=== PATIENT | female | born 2000 | race Caucasian/White ===

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

== ENCOUNTER 2020-01-11 16:38 | Outpatient (REF) | payer OTHER, SELFPAY ==
[2020-01-13 14:28] LABS: Chlamydia Result Negative (Negative); GC Result Negative (Negative)
== END 2020-01-11 16:58 ==
LOC: LBN 16:38
PROVIDERS: Visit Provider Nurse Practitioner Family
DX: Z11.3 Encounter for screening for infections with a predominantly sexual mode of transmission (principal)
CPT/HCPCS: 87491; 87591

== ENCOUNTER 2020-04-05 15:55 | Outpatient (REF) | payer OTHER, SELFPAY ==
[2020-04-07 04:18] LABS: Patient Race White; SARS-CoV-2 RNA Undetected (Undetected); SARS-CoV-2 Specimen Source Nasopharynx
== END 2020-04-05 16:15 ==
LOC: NCHCN 15:55
PROVIDERS: Visit Provider Nurse Practitioner Family
DX: J34.89 Other specified disorders of nose and nasal sinuses (principal)
CPT/HCPCS: U0003

== ENCOUNTER 2021-12-21 10:50 | Outpatient (REF) | payer BC, SELFPAY ==
--- NOTE | 2021-12-21 09:05 | PAPFT_PTH ---
PATIENT: Leanne Washington LOC: [facility]#:[id number] AGE/SX: 21/F ROOM: RE12/21/[address]: Rosalee De La Garza : 2000 BED: DIS: 12/21/2021 SPEC #: [id number] RECD: 12/21/21 18:29 STATUS: VALERIE REQ #: [id number] NAI: 12/21/21 09:[address]: Rosalee De La Garza DEPT: [facility] Cytology RECD BY: Shanthi Rueda ENTERED: 12/21/21 18:30 SP TYPE: PAPFT OT DR: Unknown,Unknown Tissues: 1 - CX/ENDOCX FOR PAP SMEARS Procedures: PAP THIN PREP/UVM Screening Comments: [id number]
== END 2021-12-21 10:51 | disposition home or self-care (01) ==
LOC: NCHCN 10:50
PROVIDERS: Visit Provider Nurse Practitioner Family
DX: Z12.4 Encounter for screening for malignant neoplasm of cervix (principal)
CPT/HCPCS: 88142

== ENCOUNTER 2024-09-07 14:00 | Outpatient (CLI) | payer OTHER, SELFPAY ==
[2024-09-07 13:11] LABS: HCG Quant, Pregnancy 146 mIU/mL (1-3)
== END 2024-09-07 14:01 | disposition home or self-care (01) ==
LOC: LBO 14:01
PROVIDERS: Visit Provider Advanced Practice Midwife
DX: Z34.91 Encounter for supervision of normal pregnancy, unspecified, first trimester (principal); N92.6 Irregular menstruation, unspecified
CPT/HCPCS: 36415; 86850; 86900; 86901; 84702

== ENCOUNTER 2024-09-09 03:46 | Outpatient (CLI) | payer OTHER, SELFPAY ==
[2024-09-09 10:55] LABS: HCG Quant, Pregnancy 447 mIU/mL (1-3)
== END 2024-09-09 03:47 | disposition home or self-care (01) ==
LOC: LBO 03:46
PROVIDERS: Visit Provider Advanced Practice Midwife
DX: Z34.91 Encounter for supervision of normal pregnancy, unspecified, first trimester (principal); N92.6 Irregular menstruation, unspecified
CPT/HCPCS: 36415; 84702

== ENCOUNTER 2024-11-18 02:14 | Outpatient (CLI) | payer OTHER, SELFPAY ==
[2024-11-18 11:03] LABS: Panorama Kit Sent via Fed Ex
[2024-11-18 11:30] LABS: Abs Immature Grans 0.03 10^3/uL (0.0-0.06); Absolute Basophil Count 0.06 10^3/uL (0.0-0.2); Absolute Eosinophil Count 0.12 10^3/uL (0.0-0.7); Absolute Lymphocyte Count 1.07 10^3/uL (1.2-3.4); Absolute Monocyte Count 0.34 10^3/uL (0.1-0.8); Absolute Neutrophil Count 7.47 10^3/uL (1.2-6.7); Basophils % 0.7 %; Eosinophils % 1.3 %; HCT 40.8 % (36.0-46.0); HGB 13.9 g/dL (11.2-15.7); Immature Grans % 0.3 %; Lymphocytes % 11.8 %; MCH 29.1 pg (27.0-33.0); MCHC 34.1 % (32.0-36.0); MCV 86 fL (80-95); MPV 10.4 fL (8.0-11.0); Monocytes % 3.7 %; Neutrophils % 82.2 %; Platelet Count 301 10^3/uL (130-400); RBC 4.77 10^6/uL (3.93-5.22); RDW 13.4 % (11.7-14.6); WBC 9.09 10^3/uL (4.4-10.8)
[2024-11-18 18:59] LABS: Hepatitis B Surface Ag Negative (Negative)
[2024-11-18 19:30] LABS: HIV-1/2 Ag & Ab Screen Negative (Negative)
[2024-11-18 19:36] LABS: Hepatitis C Ab w Rflx HCV PCR Negative (Negative)
[2024-11-19 09:03] LABS: Rubella IgG Ab (UVM) Positive (See Note)
[2024-11-19 09:05] LABS: Varicella IgG Antibody Positive (See Note)
[2024-11-21 14:39] LABS: Syphilis IgG w/Reflex Nonreactive (Nonreactive)
[2024-11-26 01:28] LABS: Specimen WB Whole Blood
[2024-11-27 16:57] LABS: Result Summary NEGATIVE; Specimen WB Whole Blood
== END 2024-11-18 02:15 | disposition home or self-care (01) ==
LOC: LBO 02:14
PROVIDERS: Advanced Practice Midwife; Visit Provider Advanced Practice Midwife
DX: Z34.92 Encounter for supervision of normal pregnancy, unspecified, second trimester (principal); Z3A.14 14 weeks gestation of pregnancy
CPT/HCPCS: 36415; 81220; 81222; 81329; 86787; 86803; 86850; 86900; 86901; 87340; 87389; 85025; 86762; 86780

== ENCOUNTER 2024-11-18 10:35 | Outpatient (REF) | payer OTHER, SELFPAY ==
--- NOTE | 2024-11-18 10:15 | PAPFT_PTH ---
PATIENT: Leanne Washington LOC: [place] U#:[id number] AGE/SX: 24/F ROOM: RE11/18/[address]: Daphne Kinsey : 2000 BED: DIS: 11/18/2024 SPEC #: [id number] RECD: 11/18/24 13:06 STATUS: VALERIE REHolly #: [id number] NAI: 11/18/24 10:[address]: Daphne Kinsey DEPT: [facility] Cytology RECD BY: Shanthi Ruead ENTERED: 11/18/24 13:06 SP TYPE: PAPFT OTHR DR: Unknown,Unknown Tissues: 1 - CX/ENDOCX FOR PAP SMEARS Procedures: PAP THIN PREP/UVM Screening Comments: [id number] (CHLAMYDIA/GC)
[2024-11-18 12:57] LABS: *AMPHETAMINES SCREEN URINE Negative (Negative); *BARBITURATES SCREEN URINE Negative (Negative); *BENZODIAZEPINES SCREEN URINE Negative (Negative); Cannabinoids THC Negative (Negative); Cocaine Screen,Urine Negative (Negative); METHADONE URINE SCREEN Negative (Negative); OPIATES URINE SCREEN Negative (Negative)
[2024-11-18 13:11] LABS: Tricyclic Antidepressants Negative (Negative)
[2024-11-19 11:45] LABS: Fentanyl Scr w/Rfx Confirm Negative ng/mL (<1)
[2024-11-19 12:03] LABS: Chlamydia Result Negative (Negative); GC Result Negative (Negative)
[2024-11-24 10:45] LABS: Buprenorphine Negative ng/mL (Cutoff: 5.0); Norbuprenorphine Negative ng/mL (Cutoff: 2.5)
== END 2024-11-18 10:36 | disposition home or self-care (01) ==
LOC: LBN 10:35
PROVIDERS: Visit Provider Advanced Practice Midwife
DX: Z34.92 Encounter for supervision of normal pregnancy, unspecified, second trimester (principal); Z3A.14 14 weeks gestation of pregnancy; Z12.4 Encounter for screening for malignant neoplasm of cervix
CPT/HCPCS: 80307; 80348; 87491; 87591; 88142; 87086

== ENCOUNTER 2024-12-16 10:40 | Outpatient (REF) | payer OTHER, SELFPAY ==
[2024-12-16 13:45] LABS: PROTEIN < 6.0 mg/dL
[2024-12-16 13:46] LABS: COMMENT (LAB VIEW ONLY) < 13.00 mg/dL
== END 2024-12-16 10:41 | disposition home or self-care (01) ==
LOC: LBN 10:40
PROVIDERS: Visit Provider Advanced Practice Midwife
DX: Z34.91 Encounter for supervision of normal pregnancy, unspecified, first trimester (principal)
CPT/HCPCS: 82565; 84156

== ENCOUNTER 2024-12-16 11:07 | Outpatient (CLI) | payer OTHER, SELFPAY ==
[2024-12-16 12:05] LABS: ALT 25 U/L (14-59); AST 18 U/L (15-37); Albumin 3.5 g/dL (3.4-5.0); Alkaline Phosphatase 67 U/L (46-116); Anion Gap 11.3 mmol/L (3-11); BUN 7 mg/dL (7-18); Bilirubin, Total 0.3 mg/dL (0.2-1.0); CO2 24.7 mmol/L (21.0-32.0); CREATININE 0.6 mg/dL (0.55-1.02); Calcium 9.2 mg/dL (8.5-10.1); Chloride 102 mmol/L (98-107); Estimated GFR 128.46 (mL/min/1.73m2); Glucose 85 mg/dL (74-106); Sodium 138 mmol/L (136-145); Total Protein 7.5 g/dL (6.4-8.2)
== END 2024-12-16 11:08 | disposition home or self-care (01) ==
LOC: LBO 11:07
PROVIDERS: Visit Provider Advanced Practice Midwife
DX: Z34.91 Encounter for supervision of normal pregnancy, unspecified, first trimester (principal)
CPT/HCPCS: 36415; 80053

== ENCOUNTER 2025-03-02 08:15 | Outpatient (CLI) | payer OTHER, SELFPAY ==
[2025-03-02 09:07] LABS: HCT 36.6 % (36.0-46.0); HGB 12.2 g/dL (11.2-15.7); MCH 29.6 pg (27.0-33.0); MCHC 33.3 % (32.0-36.0); MCV 89 fL (80-95); MPV 9.4 fL (8.0-11.0); Platelet Count 255 10^3/uL (130-400); RBC 4.12 10^6/uL (3.93-5.22); RDW 13.7 % (11.7-14.6); RDW-SD 44.6 fL; WBC 12.06 10^3/uL (4.4-10.8)
[2025-03-02 09:15] LABS: Glucose,1 Hr (Glucola) 112 mg/dL (80-140)
== END 2025-03-02 08:16 | disposition home or self-care (01) ==
LOC: LBO 08:15
PROVIDERS: Visit Provider Advanced Practice Midwife
DX: Z34.93 Encounter for supervision of normal pregnancy, unspecified, third trimester (principal); O26.893 Other specified pregnancy related conditions, third trimester; Z67.91 Unspecified blood type, Rh negative
CPT/HCPCS: 36415; 82950; 85027; 86850; 90384

== ENCOUNTER 2025-03-02 10:26 | Outpatient (CLI) | payer OTHER, SELFPAY ==
--- NOTE | 2025-03-02 06:15 | DI.US_ITS ---
Exam(s) US OB TISHA WEIGHT EXAM: US OB TISHA WEIGHT CLINICAL HISTORY: placenta previa,HYPERTENSION,HIGH RISK,MEDICATION EXPOSURE. TECHNIQUE: Transabdominal obstetrical ultrasound was performed. COMPARISON: US POCUS EXAM from 10/12/2024 FINDINGS: There is a single viable intrauterine gestation with cardiac activity identified-146 bpm The fetus is presently in cephalic position . Amniotic fluid: There is a normal amount of amniotic fluid with an TISHA of 16.7cm. Placental location: The placenta is posterior grade 1,and the inferior tip of the placenta is at the marginal aspect of the internal cervical os implying marginal placenta previa. Cervix: Cervical length is 4.7 cm and closed. There is also no fluid in the endocervical canal. Dating parameters place this at approximately 29 gestational age, implying BERNIE of 05/18/2025. BPD measures 27 weeks and 3 days HC measures 30 weeks and 4 days AC measures 29 weeks and 2 days FL measures 28 weeks and 6 days Estimated weight is 1339 gm-2 pounds 15 ounces Fetus is at the 58th percentile on the Hadlock scale. IMPRESSION:: Viable intrauterine gestation, as described above. Marginal placenta previa. Cervical length is 4.7 cm. DATA REPOSITORY:
== END 2025-03-02 10:46 ==
PROVIDERS: PCP Nurse Practitioner Family; Visit Provider Obstetrics & Gynecology
DX: O44.03 Complete placenta previa NOS or without hemorrhage, third trimester (principal); I10 Essential (primary) hypertension; O09.893 Supervision of other high risk pregnancies, third trimester; Z3A.29 29 weeks gestation of pregnancy
CPT/HCPCS: 76816

== ENCOUNTER 2025-03-31 14:04 | Outpatient (CLI) | payer OTHER, SELFPAY ==
[2025-03-31] VITALS (7 sets, daily range): BP systolic 127–145; BP diastolic 83–99; PULSE 76–86; TEMP 37
[2025-03-31 15:27] LABS: HCT 36.2 % (36.0-46.0); HGB 12.2 g/dL (11.2-15.7); MCH 29.7 pg (27.0-33.0); MCHC 33.7 % (32.0-36.0); MCV 88 fL (80-95); MPV 10.2 fL (8.0-11.0); Platelet Count 213 10^3/uL (130-400); RBC 4.11 10^6/uL (3.93-5.22); RDW 13.7 % (11.7-14.6); RDW-SD 43.1 fL; WBC 10.33 10^3/uL (4.4-10.8)
[2025-03-31 15:33] LABS: Cannabinoids THC Negative (Negative); METHADONE URINE SCREEN Negative (Negative)
[2025-03-31 15:35] LABS: PROTEIN < 6.0 mg/dL
[2025-03-31 15:55] LABS: ALT 19 U/L (14-59); AST 16 U/L (15-37); Albumin 2.7 g/dL (3.4-5.0); Alkaline Phosphatase 108 U/L (46-116); Anion Gap 11.9 mmol/L (3-11); BUN 4 mg/dL (7-18); Bilirubin, Total 0.2 mg/dL (0.2-1.0); CO2 23.1 mmol/L (21.0-32.0); Calcium 8.9 mg/dL (8.5-10.1); Chloride 106 mmol/L (98-107); Glucose 77 mg/dL (74-106); Potassium 3.7 mmol/L (3.5-5.1); Sodium 141 mmol/L (136-145); Total Protein 6.4 g/dL (6.4-8.2)
[2025-03-31] MEDS: Labetalol 100 MG TAB 200 MG PO ×2 (16:58→17:57)
--- NOTE | 2025-03-31 18:16 | W.OBNST ---
Date of service: 03/31/25 Time of Service: 18:16 NST Evaluation Reason for NST Reasons for Nonstress Test: OTHER, SEE COMMENT Reason for NST Other: Elevated BP in office Gestational Age Gestational Age in Weeks and Days: 32 Weeks and 5Days Test and Monitor Explained Test/Monitor Explained: Test Explained, Monitor Explained and Patient Verbalized Understanding Vital Signs Blood Pressure: 145/99 Pulse: 80 Temperature: 98.6 F Urine Results Urine Protein: Negative Urine Ketones: Negative Urine Glucose: Negative Urine Blood: Negative NST Information Date on Monitor: 03/31/25 Time on Monitor: 14:15 Date off Monitor: 03/31/25 Time off Monitor: 18:18 Total Time on Monitor: 243 NST Interventions: PO Hydration Contraction Frequency: Occasional NST Evaluation Patient States Movement: Present FHR Baseline: 135 Variability: Moderate 6-25 bpm Accelerations: 15x15 Decelerations: None NST Results: Reactive Note Ultrasound Done: N/A. NST Note Note: Sustained mild range pressures Labs all nml Consultation with Dr. Contreras, Dx is chronic HTN Will order labetalol 200 mg PO BID F/up in 2 days in office for MD appt and NST/BP check NST Reviewed and Verified by: Inez Aguero
--- NOTE | 2025-04-01 07:15 | W.OBNST ---
Date of service: 03/31/25 Time of Service: 18:00 NST Evaluation Reason for NST Reasons for Nonstress Test: OTHER, SEE COMMENT Reason for NST Other: Elevated BP in office Gestational Age Gestational Age in Weeks and Days: 32 Weeks and 5Days Test and Monitor Explained Test/Monitor Explained: Test Explained, Monitor Explained and Patient Verbalized Understanding Vital Signs Blood Pressure: 145/99 Pulse: 80 Temperature: 98.6 F Urine Results Urine Protein: Negative Urine Ketones: Negative Urine Glucose: Negative Urine Blood: Negative NST Information Date on Monitor: 03/31/25 Time on Monitor: 14:15 Date off Monitor: 03/31/25 Time off Monitor: 18:18 Total Time on Monitor: 243 NST Interventions: PO Hydration Contraction Frequency: Occasional NST Evaluation Patient States Movement: Present FHR Baseline: 135 Variability: Moderate 6-25 bpm Accelerations: 15x15 Decelerations: None NST Results: Reactive Note Ultrasound Done: N/A. NST Note Note: start labetalol 300 mg BID RTO 2 days NST Reviewed and Verified by: Inez Aguero
[2025-04-01 07:16] VITALS: BP 145/99; PULSE 80; TEMP 37
[2025-04-02 11:54] LABS: Fentanyl Scr w/Rfx Confirm Negative ng/mL (<1)
== END 2025-03-31 18:30 ==
LOC: BCD 14:09 → OBS 14:35
PROVIDERS: PCP Nurse Practitioner Family; Visit Provider Advanced Practice Midwife
DX: O13.3 Gestational [pregnancy-induced] hypertension without significant proteinuria, third trimester (principal); Z3A.32 32 weeks gestation of pregnancy
CPT/HCPCS: 80053; 80307; 80348; 85027; 59025; 82565; 84156

== ENCOUNTER 2025-04-02 07:40 | Outpatient (CLI) | payer OTHER, SELFPAY ==
[2025-04-02 08:55] VITALS: BP 123/86; PULSE 105; TEMP 36.7
--- NOTE | 2025-04-02 10:12 | W.OBNST ---
Date of service: 04/02/25 Time of Service: 10:12 NST Evaluation Reason for NST Reasons for Nonstress Test: CHRONIC HYPERTENSION Reason for NST Other: partial previa Gestational Age Gestational Age in Weeks and Days: 33 Weeks and 0Days Test and Monitor Explained Test/Monitor Explained: Test Explained and Monitor Explained Vital Signs Blood Pressure: 123/86 Pulse: 105 Temperature: 98.1 F NST Information Date on Monitor: 04/02/25 Time on Monitor: 08:25 Date off Monitor: 04/02/25 Time off Monitor: 08:55 Total Time on Monitor: 30 NST Interventions: None NST Evaluation Patient States Movement: Present FHR Baseline: 145 Variability: Moderate 6-25 bpm Accelerations: 15x15 Decelerations: None NST Results: Reactive Note Ultrasound Done: N/A. NST Note Note: Category 1, reactive NST NST Reviewed and Verified by: Jessica Contreras
[2025-04-02 10:13] VITALS: BP 123/86; PULSE 105; TEMP 36.7
== END 2025-04-02 09:25 ==
LOC: BCD 07:42 → OBS 08:49
PROVIDERS: PCP Nurse Practitioner Family; Visit Provider Advanced Practice Midwife
DX: Z3A.30 30 weeks gestation of pregnancy (principal); O12.03 Gestational edema, third trimester; O13.3 Gestational [pregnancy-induced] hypertension without significant proteinuria, third trimester
CPT/HCPCS: 59025

== ENCOUNTER 2025-04-06 08:00 | Outpatient (CLI) | payer OTHER, SELFPAY ==
[2025-04-06 08:11] VITALS: BP 115/71; PULSE 85; TEMP 36.4
--- NOTE | 2025-04-06 11:04 | W.OBNST ---
Date of service: 04/06/25 Time of Service: 11:04 NST Evaluation Reason for NST Reasons for Nonstress Test: GESTATIONAL HYPERTENSION Gestational Age Gestational Age in Weeks and Days: 33 Weeks and 4Days Test and Monitor Explained Test/Monitor Explained: Test Explained, Monitor Explained and Patient Verbalized Understanding Urine Results Urine Protein: Positive Urine Ketones: Negative Urine Glucose: Negative Urine Blood: Negative NST Information Date on Monitor: 04/06/25 Time on Monitor: 08:10 Date off Monitor: 04/06/25 Time off Monitor: 08:49 Total Time on Monitor: 39 NST Interventions: None NST Evaluation Patient States Movement: Present FHR Baseline: 130 Variability: Moderate 6-25 bpm Accelerations: 15x15 Decelerations: None NST Results: Reactive Note Ultrasound Done: N/A. NST Note Note: Category 1, reactive NST. NST Reviewed and Verified by: Jessica Contreras
--- NOTE | 2025-04-06 11:19 | W.OBNST ---
Date of service: 04/06/25 Time of Service: 17:00 NST Evaluation Reason for NST Reasons for Nonstress Test: GESTATIONAL HYPERTENSION Gestational Age Gestational Age in Weeks and Days: 35 Weeks and 4Days Test and Monitor Explained Test/Monitor Explained: Test Explained, Monitor Explained and Patient Verbalized Understanding Urine Results Urine Protein: Positive Urine Ketones: Negative Urine Glucose: Negative Urine Blood: Negative NST Information Date on Monitor: 04/06/25 Time on Monitor: 08:10 Date off Monitor: 04/06/25 Time off Monitor: 08:49 Total Time on Monitor: 39 NST Interventions: None NST Evaluation Patient States Movement: Present FHR Baseline: 130 Variability: Moderate 6-25 bpm Accelerations: 15x15 Decelerations: None NST Results: Reactive Note Ultrasound Done: N/A. NST Note NST Reviewed and Verified by: Adrienne Trammell
--- NOTE | 2025-04-21 11:18 | W.OBNST ---
Date of service: 04/21/25 Time of Service: 17:00 NST Evaluation Reason for NST Reasons for Nonstress Test: GESTATIONAL HYPERTENSION Gestational Age Gestational Age in Weeks and Days: 35 Weeks and 4Days Test and Monitor Explained Test/Monitor Explained: Test Explained, Monitor Explained and Patient Verbalized Understanding Urine Results Urine Protein: Positive Urine Ketones: Negative Urine Glucose: Negative Urine Blood: Negative NST Information Time on Monitor: 08:10 Date off Monitor: 04/06/25 Time off Monitor: 08:49 NST Interventions: None NST Evaluation Patient States Movement: Present FHR Baseline: 130 Variability: Moderate 6-25 bpm Accelerations: 15x15 Decelerations: None NST Results: Reactive Note Ultrasound Done: N/A. NST Note NST Reviewed and Verified by: Adrienne Trammell
== END 2025-04-06 08:45 ==
LOC: BCD 08:02 → OBS 08:05
PROVIDERS: PCP Nurse Practitioner Family; Visit Provider Obstetrics & Gynecology
DX: O13.3 Gestational [pregnancy-induced] hypertension without significant proteinuria, third trimester (principal); Z3A.34 34 weeks gestation of pregnancy
CPT/HCPCS: 59025

== ENCOUNTER 2025-04-09 07:31 | Outpatient (CLI) | payer OTHER, SELFPAY ==
[2025-04-09 08:03] VITALS: BP 120/82; PULSE 84; TEMP 36.8
[2025-04-09 08:20] VITALS: BP 120/82; PULSE 84
[2025-04-09 08:35] VITALS: BP 120/80
--- NOTE | 2025-04-21 11:58 | W.OBNST ---
Date of service: 04/09/25 Time of Service: 11:58 NST Evaluation Reason for NST Reasons for Nonstress Test: CHRONIC HYPERTENSION Gestational Age Gestational Age in Weeks and Days: 35 Weeks and 4Days Test and Monitor Explained Test/Monitor Explained: Test Explained Vital Signs Blood Pressure: 120/80 Pulse: 84 Temperature: 98.2 F Urine Results Urine Protein: Positive Urine Ketones: Positive Urine Glucose: Negative Urine Blood: Negative NST Information Date on Monitor: 04/09/25 Time on Monitor: 08:00 NST Interventions: PO Hydration NST Evaluation Patient States Movement: Present FHR Baseline: 125 Variability: Moderate 6-25 bpm Accelerations: 15x15 Decelerations: None NST Results: Reactive Note Ultrasound Done: N/A. NST Note Note: Category 1, reactive NST NST Reviewed and Verified by: Jessica Contreras
[2025-04-21 11:59] VITALS: BP 120/80; PULSE 84; TEMP 36.8
== END 2025-04-09 09:24 | disposition home health service (06) ==
LOC: BCD 07:32 → OBS 07:56
PROVIDERS: PCP Nurse Practitioner Family; Visit Provider Obstetrics & Gynecology
DX: O13.3 Gestational [pregnancy-induced] hypertension without significant proteinuria, third trimester (principal); Z3A.35 35 weeks gestation of pregnancy
CPT/HCPCS: 59025

== ENCOUNTER 2025-04-15 07:49 | Outpatient (CLI) | payer OTHER, SELFPAY ==
[2025-04-15 09:57] VITALS: BP 133/89; PULSE 78; TEMP 36.5
[2025-04-15 10:05] VITALS: BP 133/89; PULSE 78
[2025-04-15 12:04] VITALS: BP 133/89; PULSE 78; TEMP 36.5
--- NOTE | 2025-04-15 12:04 | W.OBNST ---
Date of service: 04/15/25 Time of Service: 12:04 NST Evaluation Reason for NST Reasons for Nonstress Test: CHRONIC HYPERTENSION Gestational Age Gestational Age in Weeks and Days: 34 Weeks and 6Days Test and Monitor Explained Test/Monitor Explained: Test Explained and Monitor Explained Vital Signs Blood Pressure: 133/89 Pulse: 78 Temperature: 97.7 F Weight: 155 lb Urine Results Urine Protein: Negative Urine Ketones: Negative Urine Glucose: Negative Urine Blood: Negative NST Information Date on Monitor: 04/15/25 Time on Monitor: 10:00 Date off Monitor: 04/15/25 Time off Monitor: 10:57 Total Time on Monitor: 57 NST Interventions: PO Hydration NST Evaluation Patient States Movement: Present FHR Baseline: 145 Variability: Moderate 6-25 bpm Accelerations: 15x15 Decelerations: None NST Results: Reactive Note Ultrasound Done: N/A. NST Note Note: Category 1, reactive NST. Occasional irregular contraction. Discussed timing for delivery and continued follow-up. Blood pressure remained stable NST Reviewed and Verified by: Jessica Contreras
== END 2025-04-15 11:00 ==
LOC: BCD 07:50 → OBS 09:55
PROVIDERS: PCP Nurse Practitioner Family; Visit Provider Obstetrics & Gynecology
DX: O13.3 Gestational [pregnancy-induced] hypertension without significant proteinuria, third trimester (principal); Z3A.34 34 weeks gestation of pregnancy
CPT/HCPCS: 59025

== ENCOUNTER 2025-04-20 07:21 | Outpatient (CLI) | payer OTHER, SELFPAY ==
[2025-04-20 08:40] VITALS: BP 126/84; PULSE 94; TEMP 37.2
--- NOTE | 2025-04-20 09:43 | W.OBNST ---
Date of service: 04/20/25 Time of Service: 09:43 NST Evaluation Reason for NST Reasons for Nonstress Test: CHRONIC HYPERTENSION Gestational Age Gestational Age in Weeks and Days: 35 Weeks and 4Days Test and Monitor Explained Test/Monitor Explained: Test Explained, Monitor Explained and Patient Verbalized Understanding Urine Results Urine Protein: Positive Urine Ketones: Positive Urine Glucose: Negative Urine Blood: Negative NST Information Date on Monitor: 04/20/25 Time on Monitor: 08:35 Date off Monitor: 04/20/25 Time off Monitor: 09:11 Total Time on Monitor: 36 NST Interventions: None NST Evaluation Patient States Movement: Present FHR Baseline: 135 Variability: Moderate 6-25 bpm Accelerations: 15x15 Decelerations: None NST Results: Reactive Note Ultrasound Done: N/A. NST Note Note: Patient seen with her partner. Category 1, reactive strip. Occasional irregular uterine activity, patient not appreciating this. She does have a repeat ultrasound scheduled at [facility] on 04/30 for reevaluation of placental location. Blood pressure remained stable. Refill for labetalol sent to the pharmacy. All questions answered. NST Reviewed and Verified by: Jessica Contreras
== END 2025-04-20 09:15 ==
LOC: BCD 07:22 → OBS 08:30
PROVIDERS: PCP Nurse Practitioner Family; Visit Provider Obstetrics & Gynecology
DX: O13.3 Gestational [pregnancy-induced] hypertension without significant proteinuria, third trimester (principal); Z3A.35 35 weeks gestation of pregnancy
CPT/HCPCS: 59025

== ENCOUNTER 2025-04-22 07:43 | Outpatient (CLI) | payer OTHER, SELFPAY ==
[2025-04-22 08:33] VITALS: BP 135/94; PULSE 73
[2025-04-22 08:37] VITALS: BP 127/86; PULSE 80
[2025-04-22 09:15] LABS: HCT 36.4 % (36.0-46.0); HGB 12.1 g/dL (11.2-15.7); MCH 29.6 pg (27.0-33.0); MCHC 33.2 % (32.0-36.0); MCV 89 fL (80-95); MPV 11.1 fL (8.0-11.0); Platelet Count 176 10^3/uL (130-400); RBC 4.09 10^6/uL (3.93-5.22); RDW 14.0 % (11.7-14.6); RDW-SD 44.8 fL; WBC 10.17 10^3/uL (4.4-10.8)
[2025-04-22 09:31] LABS: ALT 21 U/L (14-59); AST 16 U/L (15-37); Albumin 2.6 g/dL (3.4-5.0); Alkaline Phosphatase 141 U/L (46-116); Anion Gap 7.4 mmol/L (3-11); BUN 6 mg/dL (7-18); Bilirubin, Total 0.2 mg/dL (0.2-1.0); CO2 24.6 mmol/L (21.0-32.0); Calcium 8.9 mg/dL (8.5-10.1); Chloride 105 mmol/L (98-107); Glucose 85 mg/dL (74-106); Potassium 4.2 mmol/L (3.5-5.1); Sodium 137 mmol/L (136-145); Total Protein 6.2 g/dL (6.4-8.2)
[2025-04-22 09:38] VITALS: BP 128/86; PULSE 84
[2025-04-22 17:31] VITALS: BP 128/86; PULSE 84
--- NOTE | 2025-04-22 17:31 | W.OBNST ---
Date of service: 04/22/25 Time of Service: 17:31 NST Evaluation Reason for NST Reasons for Nonstress Test: CHRONIC HYPERTENSION Gestational Age Gestational Age in Weeks and Days: 35 Weeks and 6Days Test and Monitor Explained Test/Monitor Explained: Test Explained Vital Signs Blood Pressure: 128/86 Pulse: 84 Urine Results Urine Protein: Positive Urine Ketones: Negative Urine Glucose: Negative Urine Blood: Negative NST Information Date on Monitor: 04/22/25 Time on Monitor: 08:25 Date off Monitor: 04/22/25 Time off Monitor: 10:08 Total Time on Monitor: 103 NST Interventions: PO Hydration NST Evaluation Patient States Movement: Present FHR Baseline: 140 Variability: Moderate 6-25 bpm Accelerations: 15x15 Decelerations: None NST Results: Reactive Note Ultrasound Done: N/A. NST Note NST Reviewed and Verified by: Adrienne Trammell
== END 2025-04-22 10:30 ==
LOC: BCD 07:44 → OBS 08:28
PROVIDERS: PCP Nurse Practitioner Family; Visit Provider Obstetrics & Gynecology
DX: O13.3 Gestational [pregnancy-induced] hypertension without significant proteinuria, third trimester (principal); Z3A.35 35 weeks gestation of pregnancy
CPT/HCPCS: 36415; 80053; 85027; 59025; 82565; 84156

== ENCOUNTER 2025-04-26 07:38 | Outpatient (CLI) | payer OTHER, SELFPAY ==
[2025-04-26 11:57] VITALS: BP 143/95; PULSE 77; TEMP 36.7
[2025-04-26 12:04] VITALS: BP 143/95; PULSE 77; RESP 16; TEMP 36.7
[2025-04-26 12:19] VITALS: BP 148/96; PULSE 73
--- NOTE | 2025-04-26 16:30 | W.OBNST ---
Date of service: 04/26/25 Time of Service: 12:30 NST Evaluation Reason for NST Reasons for Nonstress Test: CHRONIC HYPERTENSION Gestational Age Gestational Age in Weeks and Days: 36 Weeks and 3Days Test and Monitor Explained Test/Monitor Explained: Patient Verbalized Understanding Vital Signs Blood Pressure: 143/95 Pulse: 77 Temperature: 98.1 F Weight: 160 lb Urine Results Urine Protein: Negative Urine Ketones: Negative Urine Glucose: Negative Urine Blood: Negative NST Information Date on Monitor: 04/26/25 Time on Monitor: 11:55 Date off Monitor: 04/26/25 Time off Monitor: 12:37 Total Time on Monitor: 42 NST Interventions: PO Hydration NST Evaluation Patient States Movement: Present FHR Baseline: 135 Variability: Moderate 6-25 bpm Accelerations: 15x15 Decelerations: None NST Results: Reactive Note Ultrasound Done: N/A. NST Note Note: see record NST Reviewed and Verified by: Liss Roman
[2025-04-26 16:32] VITALS: BP 143/95; PULSE 77; TEMP 36.7
== END 2025-04-26 12:40 ==
LOC: BCD 07:38 → OBS 11:53
PROVIDERS: PCP Nurse Practitioner Family; Visit Provider Obstetrics & Gynecology
DX: O13.3 Gestational [pregnancy-induced] hypertension without significant proteinuria, third trimester (principal); Z3A.36 36 weeks gestation of pregnancy
CPT/HCPCS: 59025

== ENCOUNTER 2025-04-29 07:06 | Outpatient (CLI) | payer OTHER, SELFPAY ==
[2025-04-29 08:19] VITALS: BP 130/87; PULSE 89; TEMP 36.7
[2025-04-29 08:32] VITALS: BP 130/87; PULSE 89
--- NOTE | 2025-04-29 14:38 | W.OBNST ---
Date of service: 04/29/25 Time of Service: 08:30 NST Evaluation Reason for NST Reasons for Nonstress Test: CHRONIC HYPERTENSION Gestational Age Gestational Age in Weeks and Days: 36 Weeks and 6Days Test and Monitor Explained Test/Monitor Explained: Test Explained and Monitor Explained Vital Signs Blood Pressure: 130/87 Pulse: 89 Temperature: 98.1 F Weight: 160 lb Urine Results Urine Protein: Positive Urine Ketones: Negative Urine Glucose: Negative Urine Blood: Negative NST Information Date on Monitor: 04/29/25 Time on Monitor: 08:25 Date off Monitor: 04/29/25 Time off Monitor: 09:10 Total Time on Monitor: 45 NST Interventions: PO Hydration NST Evaluation Patient States Movement: Present FHR Baseline: 140 Variability: Moderate 6-25 bpm Note Ultrasound Done: N/A. NST Note NST Reviewed and Verified by: Liss Roman
[2025-04-29 14:44] VITALS: BP 130/87; PULSE 89; TEMP 36.7
== END 2025-04-29 09:14 ==
LOC: BCD 07:09 → OBS 08:18
PROVIDERS: PCP Nurse Practitioner Family; Visit Provider Obstetrics & Gynecology
DX: O13.3 Gestational [pregnancy-induced] hypertension without significant proteinuria, third trimester (principal); Z3A.36 36 weeks gestation of pregnancy
CPT/HCPCS: 59025

== ENCOUNTER 2025-04-30 17:22 | Inpatient (IN) | payer OTHER, SELFPAY ==
[2025-04-30] VITALS (44 sets, daily range): BP systolic 143–155; BP diastolic 98–108; PULSE 0–113; RESP 17–18; TEMP 36.5–37.3; O2SAT 98
[2025-04-30 17:54] LABS: Abs Immature Grans 0.05 10^3/uL (0.0-0.06); HCT 37.2 % (36.0-46.0); HGB 12.5 g/dL (11.2-15.7); Immature Grans % 0.5 %; MCH 29.8 pg (27.0-33.0); MCHC 33.6 % (32.0-36.0); MCV 89 fL (80-95); MPV 11.1 fL (8.0-11.0); Platelet Count 203 10^3/uL (130-400); RBC 4.20 10^6/uL (3.93-5.22); RDW 13.8 % (11.7-14.6); RDW-SD 44.3 fL; WBC 9.51 10^3/uL (4.4-10.8)
[2025-04-30 18:05] LABS: Glucose Negative (Negative)
[2025-04-30 18:12] LABS: C & S Indicated? No; RBC 0-2 HPF (0-2)
[2025-04-30 18:15] LABS: ALT 21 U/L (14-59); AST 19 U/L (15-37); Albumin 2.9 g/dL (3.4-5.0); Alkaline Phosphatase 163 U/L (46-116); Anion Gap 11.0 mmol/L (3-11); BUN 8 mg/dL (7-18); Bilirubin, Total 0.3 mg/dL (0.2-1.0); CO2 23.0 mmol/L (21.0-32.0); Calcium 9.1 mg/dL (8.5-10.1); Chloride 104 mmol/L (98-107); Glucose 84 mg/dL (74-106); Potassium 4.1 mmol/L (3.5-5.1); Sodium 138 mmol/L (136-145); Total Protein 6.8 g/dL (6.4-8.2)
--- NOTE | 2025-04-30 18:22 | W.PM.OBHPL1 ---
Date of service: 04/30/25 Time of Service: 18:22 Assessment and Plan Assessment and plan (1) : Status: Acute Assessment and plan: 25-year-old at 37 0/7 dated by 6wk US (BERNIE 05/21/2025) - Rh neg / Rub I / VZV I / GBS unknown - complicated by Rh neg status, GBS unknown status, cHTN w/superimposed pre-E w/o SF, anxiety / depression initially complicated by low lying placenta which has since resolved - Undergoing IOL for preE w/o SF - Induction with 25 mcg cytotec PV q4 - GBS prophylaxis with PCN; to be initiated after second dose of Cyotec and/or when patient begins to have plalpable, regular contractions - - - - - - - - - - - - - - - - - 04/30/2025 (Jp): I had an extensive discussion with the patient and her family at the bedside. We discussed her vaginal exam and potential options for induction. After thorough discussion patient is opted for vaginal Cytotec every 4. All questions answered to the patient and family satisfaction. GBS swab collected today mostly for postdelivery information. Will cover for GBS in an abundance of caution. Rhogam to be offered . Will continue home dosing of labetalol 300 mg twice daily. Will continue citalopram. - - - - - - - - - - - - - - - - - (2) Rh negative status during : Status: Acute (3) Depression with anxiety: Status: Acute (4) Chronic hypertension during : Status: Acute (5) Pre-eclampsia affecting childbirth: Status: Acute OB-HPI Labor/Delivery History of Present Illness Reason for Visit: preeclampsia without severe features Chief Complaint: Scheduled Induction of Labor Indication for Induction: Chronic Hypertension and PreEclampsia. BERNIE Calculator Estimated Delivery Date Method Current WG Current Estimate 05/21/25 Ultrasound #1 37w 0d Other Estimates 05/16/25 LMP (Uncertain) 37w 5d 05/22/25 Ultrasound #2 36w 6d Comments: This is a 25-year-old -0-1-0 at 37 weeks and 0 days is dated by 6-week ultrasound (BERNIE 05/21/2025) who presents for induction of labor for superimposed preeclampsia preeclampsia without severe features. Patient was seen at the [facility]'s office this morning in [facility] and an ultrasound revealed that her placenta was out of the way of the cervix. However, she was noted to have elevated blood pressures (systolics in the 140s) and a protein creatinine level reported to be at 0.5. The MFM attending to her called our services to inform us of these findings and suggested that the patient be delivered for preeclampsia without severe features. Patient reports good movement. She denies any vaginal bleeding or contractions. She denies any signs or symptoms of preeclampsia at this time. History of Present Expected Delivery Route/Plan - CNM FOB/ - Robert Washington (first child) BG Specific Issues/Plan 1. Rh neg: Rh screen with cfDNA: low risk female, Rh+, CF/SMA negative; 28 wk RhoGam given 03/02/25 2. Anxiety and Depression: Takes Paroxetine 20 mg, understands risks in . Has therapist, Leatha Loredo PRN. 3. Exposure to Paroxetine in 1st trimester. Level 2 US & MFM consult sched'ed 12/28/24 3a. see MFM notes in EMR: increased risk of PPH from Paxil exposure so plan for IV access in labor, posterior previa noted, 3b. per MFM if placental edge <1cm from os c/s delivery @ 37 wks is recommended (see consult note) 3c. At 28 wks, scan for placenta location shows placenta edge @ 2mm from cvx os; repeat at 34 wks. 3d. At 34 wks Has U/S scheduled at [facility] 04/13-1.5 cm from Os. Will repeat scan in 2 weeks (36 weeks) if > 2 cm away, vaginal here 4. Stage 1 HTN: 162 mg ASA. Pt to consider & let us know next visit 4a. Has agreed to begin low dose ASA @ 17 wk visit, 12/16- CMP WNL, urine pr/cr=unable to calculate Delivery at 38-38, testing, continue antihypertensives 5. 5 Ps Positive: Remote Hx of ETOH Abuse. initial UDS neg, 28 wk UDS 03/31=negative 6. Constipation - Taking miralax daily. Magnesium daily recommended *GBS next visit Review of Systems All systems reviewed & are unremarkable except as noted in HPI and below PFSH All Active Problems (Updated 04/30/25 @ 22:56 by Adrienne Trammell DO) Pre-eclampsia affecting childbirth (Acute) Chronic hypertension during (Acute) Placenta previa antepartum in second trimester (Acute) Stage 1 hypertension (Acute) Medication exposure during first trimester of (Acute) Rh negative status during (Acute) (Acute) Depression with anxiety (Acute) Medical History (Updated 04/30/25 @ 22:56 by Adrienne Trammell DO) 28 weeks gestation of Contraception (04/17/16) Missed menses History of alcohol use Surgical History Hollis teeth removed Family History Grandfather Skin cancer Stroke paternal Grandmother Breast cancer Heart disease Grandmother Breast cancer maternal Grandfather Non Hodgkin's lymphoma maternal Father Alcohol use disorder Social History Smoking/Tobacco Use Status: Former Tobacco Use Smoking risk assessment performed?: Yes Alcohol Intake: former Year quit: 2023 Drug use: Never Housing: house Number of Children: 0 Education Level: college Sexually active: Yes Do you think of yourself as: straight/heterosexual Current gender identity: female What is your relationship status?: Panel score (0-1 are the most socially isolated patients): 1 What type of physical activity do you participate in: none Berkley/Yazdanism: None Do you feel safe at home: Yes Do you feel safe in your relationship?: Yes Female Reproductive History Menstrual Age of Menarche: 12 Duration of menses: 6-7 days control method: pills and condoms History History 2 Para 0 Hx # Term Pregnancies 0 Multiple births 0 Hx # Pregnancies 0 Ectopic pregnancies 0 AB induced 0 Hx Number of Living Children 0 AB spontaneous 1 Past Pregnancies Del. Date GA/Weeks # Preg Succ Route Wgt Sex Labor Lgth Anesthesia Location Prov Complic 08/09/24 2 No Meds Allergies and Home Medications Allergies Allergy/AdvReac Type Severity Reaction Status Date / Time No Known Drug Allergies Allergy Other (See Verified 03/31/25 13:31 Comment) Home Medications Medication Instructions Recorded Confirmed Type paroxetine HCl 20 mg tablet 20 mg PO DAILY 09/07/24 04/26/25 History aspirin 81 mg tablet,delayed 162 mg (2 x 81 mg) PO DAILY #60 12/16/24 04/26/25 Rx release tabs vitamins no.180-ferrous 1 tab PO DAILY #90 tabs 12/16/24 04/29/25 Rx fumarate 27 mg-folic acid 1 mg tablet ( Plus Vitamin-Mineral) magnesium glycinate 100 mg (as 100 mg PO BID #60 tabs 02/10/25 04/15/25 Rx glycinate) tablet (Mag Glycinate) ondansetron 4 mg disintegrating 4 mg PO Q6H PRN nausea and 02/10/25 04/15/25 Rx tablet vomiting #20 tabs labetalol 100 mg tablet 300 mg (3 x 100 mg) PO BID #270 04/20/25 04/29/25 Rx tabs Exam Physical Exam Narrative: General: Well-nourished female in no immediate distress Pulmonary: No overt respiratory distress; CTAB Card: No overt arrythmias or murmurs Abdomen: Gravid, nontender Extremities: Trace edema noted equally bilaterally Psych: Cooperative, appropriate Detailed Labor and Delivery Exam Dilation: 1 Effacement (%): 0 station: -3 Cervix position: posterior Consistency: medium Jones Score: Cervical Points Exam 0 1 2 3 Dilation Closed 1-2cm 3-4 cm 5-6cm Effacement 0-30% 40-50% 60-70% 80% Consistency Firm Medium Soft Station -3 -2 -1,0 +1,+2 Position Posterior Mid Anterior JONES Score(Cervical Ripeness Score): 2 Amniotic Membrane Status: Intact Monitor Mode: External Contraction Frequency(min): rare Contraction Intensity: Mild Fetus A Heart Rate Baseline: 140 Monitor Accelerations: 15 X 15 Monitor Decelerations: None Variability: Moderate (6-25 BPM) Presentation: Cephalic Categories: Category I Est. Weight: 7 lb Results Results Group Beta Strep: Done-Result Unknown Lab Results: Blood type A-, ABS negative, varicella immune, rubella immune, hep B negative, hep C negative, HIV negative, gonorrhea chlamydia negative, UDS negative, cystic fibrosis negative, SMA and noncarrier, group B strep unknown Abnormal Lab Findings: Abnormal Labs 04/30/25 04/30/25 17:43 17:45 MPV 11.1 H Absolute Neutrophils 7.04 H Alkaline Phosphatase 163 H Albumin 2.9 L Urine Protein 100 H Ur Leukocyte Esterase Trace H Risk Assessment Risk for Pre-Eclampsia Date Initiated/Initials: EO Yes, if 2 or more: POSITIVE FOR: Nulliparity Risks Reviewed Risks Reviewed Upon Admission: Yes
[2025-04-30] MEDS: Labetalol 100 MG TAB 300 MG PO (20:13)
[2025-04-30] MEDS: miSOPROStol 25 MCG TAB PO (20:48)
[2025-04-30] MEDS: Lactated Ringers 1,000 ML 125 ML IV (23:10)
[2025-05-01] VITALS (158 sets, daily range): BP systolic 74–183; BP diastolic 47–118; PULSE 0–134; RESP 16–18; TEMP 36.6–36.9; O2SAT 91–100; BMI 31.4
[2025-05-01] MEDS: Labetalol 100 MG TAB 300 MG PO (08:03)
[2025-05-01] MEDS: PARoxetine 20 MG TAB PO (08:44)
[2025-05-01] MEDS: Dinoprostone-CERVICAL 10 MG VSUPP VG (10:01)
--- NOTE | 2025-05-01 10:30 | W.PM.PROGNOT ---
Date of Service Date of service: 05/01/25 Time of Service: 10:30 Assessment and Plan Assessment and plan (1) : Status: Acute Assessment and plan: 25-year-old at 37 0/7 dated by 6wk US (BERNIE 05/21/2025) - Rh neg / Rub I / VZV I / GBS unknown - complicated by Rh neg status, GBS unknown status, cHTN w/superimposed pre-E w/o SF, anxiety / depression initially complicated by low lying placenta which has since resolved- Undergoing IOL for preE w/o SF - Induced with one dose of 25 mcg PV cytotec; currently has Cervidil as of 05/01 at 10 am - GBS prophylaxis with PCN; to be initiated after second dose of Cyotec and/or when patient begins to have plalpable, regular contractions - - - - - - - - - - - - - - - - - 04/30/2025 (Jp): I had an extensive discussion with the patient and her family at the bedside. We discussed her vaginal exam and potential options for induction. After thorough discussion patient is opted for vaginal Cytotec every 4. All questions answered to the patient and family satisfaction. GBS swab collected today mostly for postdelivery information. Will cover for GBS in an abundance of caution. Rhogam to be offered . Will continue home dosing of labetalol 300 mg twice daily. Will continue citalopram. 05/01/2025 @ 1000 (Jp): Patient received 1 dose of Vasoprost all overnight. Despite attempts to reposition and IV hydration, we were unable to reduce patient's contractions in order to facilitate a second dose. Upon reexamination this morning, the patient cervix is appreciated to be softer but still does not have a favorable Gomez score. We discussed several potential interventions with the patient and her family. The original combined plan was to refresh and trial a Cook catheter; however, as the patient prepared for the morning, she began to exhibit notable anxiety about the idea. We reconvened and further discussed options. Patient expressed interest in trialing a Cervidil. We did discuss the potential risk of tachysystole and that this may require removal of the Cervidil. All questions were answered to the patient satisfaction. Cervidil was then placed at 10 AM. Of note, patient continues to deny signs or symptoms of preeclampsia, her physical exam is reassuring, and screening labs were appropriate. She is known to have a history of chronic hypertension and blood pressures have remained high. The patient does report improvement of her anxiety with the labetalol. Therefore, an additional dose of labetalol (200 mg) was added on as a noon dose. - - - - - - - - - - - - - - - - - (2) Rh negative status during : Status: Acute (3) Pre-eclampsia affecting childbirth: Status: Acute (4) Depression with anxiety: Status: Acute (5) Chronic hypertension during : Status: Acute Subjective Subjective Interval history since last seen: Undergoing IOL for cHTN with super-imposed pre-eclmapsia without severe features. Exam Narrative Exam Narrative: general: well nourished female in no immediate distress pulm: CTAB; no overt respiratory distress card: no overt arrythmias or murmurs abd: contractions palpate mild; non-tender ext: no swelling; patellar and bicep reflexes 2+ / 4 equal bilaterally SVE: 1/th/high/soft/posterior; cephalic FHT: Cat 1 [place]: q2-4 Objective Last Vital Signs Temp 97.9 F 05/01/25 11:50 Pulse 77 05/01/25 12:24 Resp 18 05/01/25 01:31 BP 146/96 H 05/01/25 12:24 Pulse Ox 98 04/30/25 19:49 Laboratory Results - last 24 hr 04/30/25 04/30/25 04/30/25 17:23 17:43 17:45 WBC Cancelled 9.51 RBC Cancelled 4.20 Hgb Cancelled 12.5 Hct Cancelled 37.2 MCV Cancelled 89 MCH Cancelled 29.8 MCHC Cancelled 33.6 RDW Cancelled 13.8 Plt Count Cancelled 203 MPV Cancelled 11.1 H Immature Gran % Cancelled 0.5 Neutrophils % Cancelled 74.1 Band Neutrophils % Cancelled Lymphocytes % Cancelled 15.9 Atypical Lymphs % Cancelled Monocytes % Cancelled 6.7 Eosinophils % Cancelled 2.3 Basophils % Cancelled 0.5 Metamyelocytes % Cancelled Myelocytes % Cancelled Promyelocytes % Cancelled Other Cells % Cancelled Nucleated RBC % Cancelled 0.0 Absolute Neutrophils Cancelled 7.04 H Absolute Lymphocytes Cancelled 1.51 Absolute Monocytes Cancelled 0.64 Absolute Eosinophils Cancelled 0.22 Absolute Basophils Cancelled 0.05 RBC Morphology Cancelled Polychromasia Cancelled Hypochromasia Cancelled Poikilocytosis Cancelled Basophilic Stippling Cancelled Anisocytosis Cancelled Microcytosis Cancelled Macrocytosis Cancelled Spherocytes Cancelled Tear Drop Cells Cancelled Ovalocytes Cancelled Stomatocytes Cancelled Estrada-[place] Bodies Cancelled [place] Cells/Echinocytes Cancelled Acanthocytes (Spur) Cancelled Schistocytes Cancelled Sodium 138 Potassium 4.1 Chloride 104 Carbon Dioxide 23.0 Anion Gap 11.0 BUN 8 Creatinine 0.6 Est GFR (CKD-EPI 2020) 127.67 Glucose 84 Calcium 9.1 Total Bilirubin 0.3 AST 19 ALT 21 Alkaline Phosphatase 163 H Total Protein 6.8 Albumin 2.9 L Urine Color Yellow Urine Clarity Clear Urine pH 7.0 Ur Specific [place] 1.020 Urine Protein 100 H Urine Ketones Negative Urine Blood Negative Urine Nitrite Negative Urine Bilirubin Negative Urine Urobilinogen 0.2 Ur Leukocyte Esterase Trace H Urine RBC 0-2 Urine WBC 3-5 Ur Epithelial Cells Few Urine Crystals Negative Urine Bacteria Moderate Urine Mucus Negative Ur Culture Indicated? No Urine Glucose Negative ABO/Rh A Negative Antibody Screen POSITIVE Antibody Identification Anti-D Time Spent with Patient Time Spent with Patient: 35-49 minutes Time was spent: preparing to see the patient(eg.review tests), obtaining and/or reviewing separately otained hiistory, ordering medications,tests, procedures and referring, communicating with other health farm or ranch animal caretaker
[2025-05-01] MEDS: Lactated Ringers 1,000 ML 125 ML IV (11:29)
[2025-05-01] MEDS: Labetalol 100 MG TAB 200 MG PO ×2 (12:26→16:49)
[2025-05-01] MEDS: hydrALAZINE 20 MG/ML VIAL 5 MG IVP (15:50)
[2025-05-01 16:33] LABS: HCT 35.1 % (36.0-46.0); HGB 12.1 g/dL (11.2-15.7); MCH 30.2 pg (27.0-33.0); MCHC 34.5 % (32.0-36.0); MCV 88 fL (80-95); MPV 11.0 fL (8.0-11.0); Platelet Count 189 10^3/uL (130-400); RBC 4.01 10^6/uL (3.93-5.22); RDW 13.9 % (11.7-14.6); RDW-SD 43.7 fL; WBC 10.53 10^3/uL (4.4-10.8)
[2025-05-01] MEDS: hydrALAZINE 20 MG/ML VIAL 10 MG IVP (16:35)
--- NOTE | 2025-05-01 16:42 | PGE_ITS ---
Date of Service Date of service: 05/01/25 Time of Service: 16:42 Assessment and Plan Assessment and plan (1) : Status: Acute Assessment and plan: 25-year-old at 37 0/7 dated by 6wk US (BERNIE 05/21/2025) - Rh neg / Rub I / VZV I / GBS unknown - complicated by Rh neg status, GBS unknown status, cHTN w/superimposed pre-E w/o SF, anxiety / depression * initially complicated by low lying placenta which has since resolved- Undergoing IOL for preE w/o SF - Induced with one dose of 25 mcg PV cytotec and subsequent Cervidil from 10 am to 5:15 pm - GBS prophylaxis with PCN; to be initiated after second dose of Cyotec and/or when patient begins to have palpable, regular contractions - - - - - - - - - - - - - - - - - 04/30/2025 (Jp): I had an extensive discussion with the patient and her family at the bedside. We discussed her vaginal exam and potential options for induction. After thorough discussion patient is opted for vaginal Cytotec every 4. All questions answered to the patient and family satisfaction. GBS swab collected today mostly for postdelivery information. Will cover for GBS in an abundance of caution. Rhogam to be offered . Will continue home dosing of labetalol 300 mg twice daily. Will continue citalopram. 05/01/2025 @ 1000 (Jp): Patient received 1 dose of Vasoprost all overnight. Despite attempts to reposition and IV hydration, we were unable to reduce patient's contractions in order to facilitate a second dose. Upon reexamination this morning, the patient cervix is appreciated to be softer but still does not have a favorable Gomez score. We discussed several potential interventions with the patient and her family. The original combined plan was to refresh and trial a Cook catheter; however, as the patient prepared for the morning, she began to exhibit notable anxiety about the idea. We reconvened and further discussed options. Patient expressed interest in trialing a Cervidil. We did discuss the potential risk of tachysystole and that this may require removal of the Cervidil. All questions were answered to the patient satisfaction. Cervidil was then placed at 10 AM. Of note, patient continues to deny signs or symptoms of preeclampsia, her physical exam is reassuring, and screening labs were appropriate. She is known to have a history of chronic hypertension and blood pressures have remained high. The patient does report improvement of her anxiety with the labetalol. Therefore, an additional dose of labetalol (200 mg) was added on as a noon dose. 05/01/2025 @ 1649 (Jp): Patient has been having steadily increasing blood pressures despite noon dose of 200 mg Labetalol. She is also noticed to have an increase in her swelling and her reflexes are more prominent. We discussed my growing concern for the developement of super-imposed pre-eclampsia with severe features and the need to initiate magnesium therapy. SCD's applied to assist with swelling; though patient is noted to be maintaining reasonable output. Magnesium therapy ordered to be initiated. Her initially elevated BP did not respond to 5 mg IV Hydralazine; therefore, 10 mg IV hydralazine was called for as well as an additional 200 mg Labetolol PO right now. Her Labetolol dosing will be increased to 400 mg TID. Ms. Washington expressed possible interest in section citing notable and mounting anxiety and concerns given her progressing clinical status. We discussed that it would be reasonable to pursue section given the severity of her symptoms remote from delivery, though, section comes with its own set of risks and is not mandated at this time. We discussed that section comes with the risks of bleeding, infection, blood clots to the legs and lungs, and damage to surrounding tissues. We discussed that there are risks to anesthesia as well as unforseen complications. We discussed that there is a risk of need for blood transfusion which comes with its own set of potential issues. As we were speaking, Ms. Washington's baby began to exhibit concerning changes in the FHT's and we lost reliable tracing. I pulled the Cervidil and an SVE found her to be 2 / 50 / -3 / soft / midline. We were able to re-establish effective tracing which was reassuring. We discussed the potential of initiating Pitocin vs depending on her desires as well as the outcomes of recovery from these acute changes. All questions were answered to the patient and family's satisfaction and she was left to discuss the options with her family. - - - - - - - - - - - - - - - - - (2) Rh negative status during : Status: Acute (3) Pre-eclampsia affecting childbirth: Status: Acute (4) Depression with anxiety: Status: Acute (5) Chronic hypertension during : Status: Acute Subjective Subjective Interval history since last seen: Patient has had notable increase in her baseline blood pressures despite an additional dose of Labetalol done this afternoon. She has had some increase in her swelling as well as an increase in the brisk nature of her DTR's. Exam Narrative Exam Narrative: general: well nourished female in no immediate distress pulm: no overt respiratory distress abd: non-tender Ext: trace edema noted equally bilaterally; +3/4 patellar DTR's Psych: Anxious; cooperative. Tearful. Objective Last Vital Signs Temp 97.9 F 05/01/25 11:50 Pulse 97 H 05/01/25 16:41 Resp 18 05/01/25 01:31 BP 175/112 H 05/01/25 16:29 Pulse Ox 100 05/01/25 16:41 Laboratory Results - last 24 hr 04/30/25 04/30/25 04/30/25 17:23 17:43 17:45 WBC Cancelled 9.51 RBC Cancelled 4.20 Hgb Cancelled 12.5 Hct Cancelled 37.2 MCV Cancelled 89 MCH Cancelled 29.8 MCHC Cancelled 33.6 RDW Cancelled 13.8 Plt Count Cancelled 203 MPV Cancelled 11.1 H Immature Gran % Cancelled 0.5 Neutrophils % Cancelled 74.1 Band Neutrophils % Cancelled Lymphocytes % Cancelled 15.9 Atypical Lymphs % Cancelled Monocytes % Cancelled 6.7 Eosinophils % Cancelled 2.3 Basophils % Cancelled 0.5 Metamyelocytes % Cancelled Myelocytes % Cancelled Promyelocytes % Cancelled Other Cells % Cancelled Nucleated RBC % Cancelled 0.0 Absolute Neutrophils Cancelled 7.04 H Absolute Lymphocytes Cancelled 1.51 Absolute Monocytes Cancelled 0.64 Absolute Eosinophils Cancelled 0.22 Absolute Basophils Cancelled 0.05 RBC Morphology Cancelled Polychromasia Cancelled Hypochromasia Cancelled Poikilocytosis Cancelled Basophilic Stippling Cancelled Anisocytosis Cancelled Microcytosis Cancelled Macrocytosis Cancelled Spherocytes Cancelled Tear Drop Cells Cancelled Ovalocytes Cancelled Stomatocytes Cancelled [place] Bodies Cancelled [place] Cells/Echinocytes Cancelled Acanthocytes (Spur) Cancelled Schistocytes Cancelled Sodium 138 Potassium 4.1 Chloride 104 Carbon Dioxide 23.0 Anion Gap 11.0 BUN 8 Creatinine 0.6 Est GFR (CKD-EPI 2020) 127.67 Glucose 84 Calcium 9.1 Total Bilirubin 0.3 AST 19 ALT 21 Alkaline Phosphatase 163 H Total Protein 6.8 Albumin 2.9 L Urine Color Yellow Urine Clarity Clear Urine pH 7.0 Ur Specific [place] 1.020 Urine Protein 100 H Urine Ketones Negative Urine Blood Negative Urine Nitrite Negative Urine Bilirubin Negative Urine Urobilinogen 0.2 Ur Leukocyte Esterase Trace H Urine RBC 0-2 Urine WBC 3-5 Ur Epithelial Cells Few Urine Crystals Negative Urine Bacteria Moderate Urine Mucus Negative Ur Culture Indicated? No Urine Glucose Negative ABO/Rh A Negative Antibody Screen POSITIVE Antibody Identification Anti-D Time Spent with Patient Time Spent with Patient: 35-49 minutes Time was spent: preparing to see the patient(eg.review tests), obtaining and/or reviewing separately otained hiistory, ordering medications,tests, procedures, indepentently interpreting results and counseling the patient
[2025-05-01 16:50] LABS: ALT 17 U/L (14-59); AST 15 U/L (15-37); Albumin 2.6 g/dL (3.4-5.0); Alkaline Phosphatase 151 U/L (46-116); Anion Gap 10.8 mmol/L (3-11); BUN 6 mg/dL (7-18); Bilirubin, Total 0.4 mg/dL (0.2-1.0); CO2 22.2 mmol/L (21.0-32.0); Calcium 8.6 mg/dL (8.5-10.1); Chloride 106 mmol/L (98-107); Glucose 85 mg/dL (74-106); Potassium 3.7 mmol/L (3.5-5.1); Sodium 139 mmol/L (136-145); Total Protein 6.3 g/dL (6.4-8.2)
[2025-05-01] MEDS: MAGNESIUM SULFATE 20 GM/500 ML BAG IV_INF (17:24)
[2025-05-01] MEDS: Oxytocin/Normal Saline 30 UNIT/500 ML BAG 2 UNITS IV (18:19)
--- NOTE | 2025-05-01 20:16 | PGE_ITS ---
Date of Service Date of service: 05/01/25 Time of Service: 20:16 Assessment and Plan Assessment and plan (1) : Status: Acute Assessment and plan: 25-year-old at 37 0/7 dated by 6wk US (BERNIE 05/21/2025) - Rh neg / Rub I / VZV I / GBS unknown - complicated by Rh neg status, GBS unknown status, cHTN w/superimposed pre-E w/o SF, anxiety / depression * initially complicated by low lying placenta which has since resolved - Undergoing IOL for preE w/o SF- Induced with one dose of 25 mcg PV cytotec and subsequent Cervidil from 10 am to 5:15 pm. Augmented with Pitocin from 1814 to 2014. Currently intact. Declines SVE. - GBS prophylaxis with PCN; to be initiated after second dose of Cyotec and/or when patient begins to have palpable, regular contractions - - - - - - - - - - - - - - - - - 04/30/2025 (Jp): I had an extensive discussion with the patient and her family at the bedside. We discussed her vaginal exam and potential options for induction. After thorough discussion patient is opted for vaginal Cytotec every 4. All questions answered to the patient and family satisfaction. GBS swab collected today mostly for postdelivery information. Will cover for GBS in an abundance of caution. Rhogam to be offered . Will continue home dosing of labetalol 300 mg twice daily. Will continue citalopram. 05/01/2025 @ 1000 (Jp): Patient received 1 dose of Vasoprost all overnight. Despite attempts to reposition and IV hydration, we were unable to reduce patient's contractions in order to facilitate a second dose. Upon reexamination this morning, the patient cervix is appreciated to be softer but still does not have a favorable Gomez score. We discussed several potential i nterventions with the patient and her family. The original combined plan was to refresh and trial a Cook catheter; however, as the patient prepared for the morning, she began to exhibit notable anxiety about the idea. We reconvened and further discussed options. Patient expressed interest in trialing a Cervidil. We did discuss the potential risk of tachysystole and that this may require removal of the Cervidil. All questions were answered to the patient satisfaction. Cervidil was then placed at 10 AM. Of note, patient continues to deny signs or symptoms of preeclampsia, her physical exam is reassuring, and screening labs were appropriate. She is known to have a history of chronic hypertension and blood pressures have remained high. The patient does report improvement of her anxiety with the labetalol. Therefore, an additional dose of labetalol (200 mg) was added on as a noon dose. 05/01/2025 @ 1649 (Jp): Patient has been having steadily increasing blood pressures despite noon dose of 200 mg Labetalol. She is also noticed to have an increase in her swelling and her reflexes are more prominent. We discussed my growing concern for the developement of super-imposed pre-eclampsia with severe features and the need to initiate magnesium therapy. SCD's applied to assist with swelling; though patient is noted to be maintaining reasonable output. Magnesium therapy ordered to be initiated. Her initially elevated BP did not respond to 5 mg IV Hydralazine; therefore, 10 mg IV hydralazine was called for as well as an additional 200 mg Labetolol PO right now. Her Labetolol dosing will be increased to 400 mg TID. Ms. Washington expressed possible interest in section citing notable and mounting anxiety and concerns given her progressing clinical status. We discussed that it would be reasonable to pursue section given the severity of her symptoms remote from delivery, though, section comes with its own set of risks and is not mandated at this time. We discussed that section comes with the risks of bleeding, infection, blood clots to the legs and lungs, and damage to surrounding tissues. We discussed that there are risks to anesthesia as well as unforseen complications. We discussed that there is a risk of need for blood transfusion which comes with its own set of potential issues. As we were speaking, Ms. Washington's baby began to exhibit concerning changes in the FHT's and we lost reliable tracing. I pulled the Cervidil and an SVE found her to be 2 / 50 / -3 / soft / midline. We were able to re-establish effective tracing which was reassuring. We discussed the potential of initiating Pitocin vs depending on her desires as well as the outcomes of recovery from these acute changes. All questions were answered to the patient and family's satisfaction and she was left to discuss the options with her family. 05/01/2025 @ 1745 (Jp): Complete transabdominal ultrasound performed and appreciates cephalic presentation without evidence of compound limb or funic presentation. After extensive discussion, patient would like to trial Pitocin. We discussed risks and benefits to initiate Pitocin, and patient was consented for initiation of Pitocin. 05/01/2025 @ 2018 (Jp): Patient found resting comfortably on her left side. Pitocin is at 2; she is feeling some pressure but appears comfortable. As I left the room and was discussing Pitocin titration with the nurse, the patient's came out and informed me Ms. Washington is requesting section. I went into speak with Ms. Washington and she expressed an independent and strong interest in proceeding with section. We again reviewed the risks and I offered to check her cervix; she declined and requested to proceed with section. She was consented for section with transfusion of bloos products as needed. - - - - - - - - - - - - - - - - - (2) Rh negative status during : Status: Acute (3) Medication exposure during first trimester of : Status: Acute (4) Pre-eclampsia affecting childbirth: Status: Acute (5) Depression with anxiety: Status: Acute (6) Chronic hypertension during : Status: Acute Subjective Subjective Interval history since last seen: Patient is requesting Exam Narrative Exam Narrative: general: Well nourished female in no immediate distress pulm: no respiratory distress abd: non-tender ext: trace edema noted equally bilaterally; SCD's in place FHT cat 1 [place]: q2-6; pit at 2 Objective Last Vital Signs Temp 98.2 F 05/01/25 19:42 Pulse 120 H 05/01/25 20:01 Resp 16 05/01/25 19:42 BP 154/96 H 05/01/25 20:00 Pulse Ox 98 05/01/25 20:01 Laboratory Results - last 24 hr 05/01/25 16:25 WBC 10.53 RBC 4.01 Hgb 12.1 Hct 35.1 L MCV 88 MCH 30.2 MCHC 34.5 RDW 13.9 Plt Count 189 MPV 11.0 Sodium 139 Potassium 3.7 Chloride 106 Carbon Dioxide 22.2 Anion Gap 10.8 BUN 6 L Creatinine 0.6 Est GFR (CKD-EPI 2020) 127.67 Glucose 85 Calcium 8.6 Total Bilirubin 0.4 AST 15 ALT 17 Alkaline Phosphatase 151 H Total Protein 6.3 L Albumin 2.6 L Time Spent with Patient Time Spent with Patient: 35-49 minutes Time was spent: preparing to see the patient(eg.review tests), obtaining and/or reviewing separately otained hiistory, ordering medications,tests, procedures, referring, communicating with other health care assistant, indepentently interpreting results, counseling the patient and care coordination
[2025-05-01] MEDS: AZITHROMYCIN 500 MG in Normal Saline 250 ML 250 MG IVPB (20:35)
--- NOTE | 2025-05-01 20:36 | ANES.PREOP_ITS ---
General Info Date of Service Date Performed: 05/01/25 Height: 5 ft Weight: 73.028 kg Body Mass Index (BMI): 31.4 Meds Allergies and Home Medications Allergies Allergy/AdvReac Type Severity Reaction Status Date / Time No Known Drug Allergies Allergy Other (See Verified 03/31/25 13:31 Comment) Home Medication Medication Instructions Recorded paroxetine HCl 20 mg tablet 20 mg PO DAILY 09/07/24 aspirin 81 mg tablet,delayed 162 mg (2 x 81 mg) PO GRACIA LY #60 12/16/24 release tabs vitamins no.180-ferrous 1 tab PO DAILY #90 ta bs 12/16/24 fumarate 27 mg-folic acid 1 mg tablet ( Plus Vitamin-Mineral) magnesium glycinate 100 mg (as 100 mg PO BID #60 tabs 02/10/25 glycinate) tablet (Mag Glycinate) ondansetron 4 mg disintegrating 4 mg PO Q6H PRN nausea and 02/10/25 tablet vomiting #20 tabs labetalol 100 mg tablet 300 mg (3 x 100 mg) PO BID # 270 04/20/25 tabs Current Visit Medications: Current Medications Generic Name Dose Route Start Last Admin Trade Name Freq PRN Reason Stop Dose Admin Citric Acid/Sodium Citrate 30 ml 05/01/25 21:00 Sodium Citrate 30 Ml Cup PO PREOP NIYA Dinoprostone 10 mg 05/01/25 09:45 05/01/25 10:01 Dinoprostone-Cervical 10 Mg Vsupp VG 10 mg DIRECTED NIYA Administration Ringer's Solution 1,000 mls @ 200 mls/hr 04/30/25 17:30 IV INFUSION NIYA Ringer's Solution 1,000 mls @ 125 mls/hr 04/30/25 17:45 05/01/25 19:47 IV 75 mls/hr INFUSION NIYA Infusion Magnesium Sulfate 20 gm in 500 mls @ 50 mls/hr 05/01/25 17:00 05/01/25 19:47 IV_INF 2 gm/hr INFUSION NIYA 50 mls/hr Protocol Titration 2 GM/HR Oxytocin/Sodium Chloride 30 unit in 500 mls @ 2 mls/hr 05/01/25 18:00 05/01/25 19:47 Pitocin/Normal Saline IV 4 milliunits/min INFUSION NIYA 4 mls/hr Protocol Titration 2 MILLIUNITS/MIN Cefazolin Sodium/Dextrose 2 gm in 50 mls @ 100 mls/hr 05/01/25 20:15 Ancef Duplex IVPB PREOP [facility] Azithromycin 500 mg/ Sodium 250 mls @ 250 mls/hr 05/01/25 20:15 Chloride IVPB PREOP [facility] IV Miscellaneous Supplies 1 each 04/30/25 17:30 Iv Access IV DIRECTED [facility] IV Miscellaneous Supplies 1 each 04/30/25 17:45 Iv Access IV DIRECTED [facility] IV Miscellaneous Supplies 1 each 05/01/25 17:00 Iv Access IV DIRECTED [facility] Labetalol HCl 400 mg 05/01/25 20:00 Labetalol 100 Mg Tab PO TID [facility] Misoprostol 25 mcg 04/30/25 18:00 05/01/25 13:40 Misoprostol 25 Mcg Tab PO Not Given Q4H [facility] Paroxetine HCl 20 mg 05/01/25 08:30 05/01/25 08:44 Paroxetine 20 Mg Tab PO 20 mg DAILY [facility] Administration Sodium Chloride 0 ml 04/30/25 17:20 Normal Saline Flush 10 Ml Syr IVP PRN PRN Sodium Chloride 0 ml 04/30/25 20:00 05/01/25 11:30 Normal Saline Flush 10 Ml Syr IVP Not Given BID NIYA Sodium Chloride 0 ml 04/30/25 17:20 Normal Saline 10 Ml Vial IJ DIRECTED PRN Sodium Chloride 0 ml 04/30/25 17:44 Normal Saline Flush 10 Ml Syr IVP PRN PRN Sodium Chloride 0 ml 04/30/25 20:00 05/01/25 11:30 Normal Saline Flush 10 Ml Syr IVP Not Given BID NIYA Sodium Chloride 0 ml 04/30/25 17:44 Normal Saline 10 Ml Vial IJ DIRECTED PRN Sodium Chloride 0 ml 05/01/25 16:50 Normal Saline Flush 10 Ml Syr IVP PRN PRN Sodium Chloride 0 ml 05/01/25 20:00 Normal Saline Flush 10 Ml Syr IVP BID NIYA Sodium Chloride 0 ml 05/01/25 16:50 Normal Saline 10 Ml Vial IJ DIRECTED PRN Terbutaline Sulfate 0.25 mg 04/30/25 17:20 Terbutaline 1 Mg/Ml Vial SC PRN PRN PFSH Active Problems Active Problems: Problem Status Onset Code Pre-eclampsia affecting childbirth Acute O14.94 Chronic hypertension during Acute O10.919 Placenta previa antepartum in second trimester Acute O44.02 Stage 1 hypertension Acute I10 Medication exposure during first trimester of Acute O09.891 Rh negative status during Acute O26.899, Z67.91 Acute Z34.90 Depression with anxiety Acute F41.8 Medical History Medical History (Updated 04/30/25 @ 22:56 by Adrienne Trammell DO) 28 weeks gestation of Contraception (04/17/16) Missed menses History of alcohol use Surgical History Surgical History [place] teeth removed Tobacco Smoking/Tobacco Use Status: Former Tobacco Use Alcohol Alcohol Intake: former Year quit: 2023 Substance Use Substance use: Never Prental History History 2 2 Para 0 Hx # Term Pregnancies 0 Multiple births 0 Hx # Pregnancies 0 Ectopic pregnancies 0 AB induced 0 Hx Number of Living Children 0 AB spontaneous 1 Past Pregnancies Del. Date GA/Weeks # Preg Succ Route Wgt Sex Labor Lgth Anesth esia Location [facility] 08/09/24 2 No Vital Signs and Lab Results Vital Signs Most Recent Vital Signs in EMR: Most Recent Vital Signs Temp Pulse Resp BP Pulse Ox 36.8 C 120 H 16 154/96 H 98 05/01/25 19:42 05/01/25 20:01 05/01/25 19:42 05/01/25 20:00 05/01/25 20:01 Lab Results 05/01/25 16:25 05/01/25 16:25 Blood Type / Crossmatch: 2 Antibody Screen POSITIVE 04/30/25 Complete Blood Count: 2 WBC, (4.4-10.8) 10.53 10^3/uL Today, 16:25 RBC, (3.93-5.22) 4.01 10^6/uL Today, 16:25 Hgb, (11.2-15.7) 12.1 g/dL Today, 16:25 Hct, (36.0-46.0) 35.1 % L Today, 16:25 Plt Count, (130-400) 189 10^3/uL Today, 16:25 Complete Metabolic Panel: 2 Sodium, (136-145) 139 mmol/L Today, 16:25 Potassium, (3.5-5.1) 3.7 mmol/L Today, 16:25 Chloride, (98-107) 106 mmol/L Today, 16:25 Carbon Dioxide, (21.0-32.0) 22.2 mmol/L Today, 16:25 BUN, (7-18) 6 mg/dL L Today, 16:25 Creatinine, (0.55-1.02) 0.6 mg/dL Today, 16:25 Est GFR (CKD-EPI 2020), (mL/min/1.73m2) 127.67 Today, 16:25 Magnesium Pending Today, 21:00 Calcium, (8.5-10.1) 8.6 mg/dL Today, 16:25 Albumin, (3.4-5.0) 2.6 g/dL L Today, 16:25 Glucose, (74-106) 85 mg/dL Today, 16:25 Liver Function Panel: 2 ALT, (14-59) 17 U/L Today, 16:25 AST, (15-37) 15 U/L Today, 16:25 Anesthesia Assessment and Plan Anesthesia History Personal History: No History of Anesthesia Complications Family History: No Family History of Anesthesia Complications Exercise Tolerance Exercise Tolerance: Metabolic Equivalents>4 Pertinent Negatives Pertinent Negatives: No Major Cardiovascular Symptoms or Complaints and No Major Pulmonary Symptoms or Complaints Cardiac & Pulmonary Exam Cardiac Exam: Normal S1/S2 Heart Sounds Pulmonary Exam: Clear Bilateral Breath Sounds Implantable Cardiac Device Does patient have a Pacemaker or an ICD?: No Airway Exam Known Difficult Airway: No Mallampati Class: 3 Mouth Opening: Normal (> 3cm) Thyromental Distance: Greater than 3 cm Neck Range of Motion: Full ROM Neck Circumference: Normal Teeth Condition: Normal Dentition ASA Classification ASA Score: ASA 3 Emergency Case?: Yes NPO Status NPO Status: Full Stomach Status Status: Confirmed Anesthesia Plan Resuscitation Status: Full Code Anesthesia Technique: Spinal Anesthesia Airway Planned: Natural Airway Pain Management: Intrathecal Analgesia Monitors Used: Standard Monitors
[2025-05-01] MEDS: ceFAZolin 2 GM/50 ML BAG IVPB (21:22)
[2025-05-01] MEDS: Bupivacaine 0.25% Pres-Free 30 ML VIAL (22:11)
--- NOTE | 2025-05-01 22:36 | W.PM.OP ---
Operative Note Operative Note PRE-OP DIAGNOSIS: Superimposed pre-eclampsia with severe features 25 yo G1 now P1001 s/p 37 week primary low transverse section Rh negative PROCEDURE: primary low transverse section SURGEON: Adrienne Trammell ASSISTING SURGEON: Inez Aguero Refer to Anesthesia Record ESTIMATED BLOOD LOSS: 700 COMPLICATIONS: None Patient was transported to: floor Patient's condition: stable Indications: 25 yo G1 now P1001 undergoing IOL for chronic hypertension w/superimposed pre-eclampsia with severe features requesting section Findings: Unremarkable anatomy. Clear fluid. Viable female in cephalic presentation with compound right hand. Normal tubes and ovaries. Procedure Description: Patient was taken to the OR with IV fluids running. She received 2 grams of Ancef and 500 mg of Azithromycin for prophylaxis. Spinal anesthesia was established, and the patient was positioned into supine positioning with her arms abducted at her sides. The vagina was prepped with Betadine. A vergara catheter was inserted using sterile technique. The abdomen was prepped with Chlorohexedine and allowed to dry for three minutes. The patient was then draped in the usual, sterile fashion, and the bed was placed at a leftward tilt. The abdomen was marked with the intended pfannestiel site. A timeout was performed; the patient and procedure were identified. Testing of the levels of anesthesia was found to be adequate. A Pfannenstiel incision was created with scalpel and carried down to the level of the fascia with bovie cautery. The fascia was incised, and the incision was carried laterally with curved robison scissors. The anterior leaf of fascia was then tented up with kocker claps, and the underlying rectus muscle was dissected off with a combination of blunt and sharp dissection. The same was done for the inferior leaf. The midline of the rectus was identified and bluntly dissected revealing the underlying peritoneum. The peritoneum was tented up with stats and incised with metzenbaum scissors after assuring no underlying bowel. A large Celso retractor was placed. The bladder was noted to be sufficiently low from the lower uterine segment. A low transverse incision was made using a fresh #10 blade, and the incision was extended using blunt traction. The fluid sac was ruptured with an allis clamp, and clear fluid was noted. The fetus was presenting as a vertex. The head was brought to the level of the hysterotomy with careful attention to avoid using the incision as a fulcrum. The rest of the body followed easily with gentle fundal pressure from the nursing home assistant administrator. After one minute of delayed cord clamping, the cord was clamped twice and cut and the baby transferred to the warmer, awaiting the pediatric staff. Pitocin was initiated. Cord blood was obtained. The placenta was then delivered with assistance and fundal massage. The uterus was explored to ensure all tissue was cleared. The uterus was then exteriorized for better visualization and wrapped in a moistened lap. Ring forceps were used to grasp the lower uterine segment, and the uterine incision was closed with a running locked layer of 0 Vicryl. Bleeding was noted to be somewhat brisk; therefore, I called for administration of TXA, which was done. A second layer of 0 Vicryl imbricating stitch was used to secure the hysterotomy. An initial assessment found in the hysterotomy hemostatic. Careful inspection of the rectus muscle appreciated good hemostasis. The right apex of the fascia was secured with a kocker clamp, and the fascia was then closed with a running 0-vicryl. Careful inspection of the subcuticular tissues appreciated good hemostasis, and this layer was closed with a running 3-0 vicryl. 20 cc's of 0.25% Marcaine was injected into the subcuticular tissues, and hemostasis was again confirmed. The skin was reapproximated with a 4-0 vicryl subcuticular stitch. The patient tolerated the procedure well. The incision was cleaned and covered with a telfa sheet, ABD pad, and medipore tape. She was then taken to the PACU in good condition. Date of Procedure: 05/01/25
[2025-05-01] MEDS: ePHEDrine 50 MG/ML VIAL IVP (23:23)
[2025-05-01 23:52] LABS: HCT 27.9 % (36.0-46.0); HGB 9.4 g/dL (11.2-15.7); MCH 30.2 pg (27.0-33.0); MCHC 33.7 % (32.0-36.0); MCV 90 fL (80-95); MPV 10.9 fL (8.0-11.0); Platelet Count 173 10^3/uL (130-400); RBC 3.11 10^6/uL (3.93-5.22); RDW 13.9 % (11.7-14.6); RDW-SD 45.2 fL; WBC 17.80 10^3/uL (4.4-10.8)
[2025-05-02] VITALS (287 sets, daily range): BP systolic 109–153; BP diastolic 57–102; PULSE 79–165; RESP 12–27; TEMP 36–37.5; O2SAT 80–100; BMI 31.4
--- NOTE | 2025-05-02 | DI.CT_ITS ---
Exam(s) CT ABDOMEN PELVIS WO/W EXAM: CT ABDOMEN PELVIS WO/W CLINICAL HISTORY: Urogram TECHNIQUE: Imaging Protocol: Axial computed tomography images with coronal and sagittal reformatted images were created and reviewed. CONTRAST MATERIAL: Intravenous: Omnipaque 350 Contrast volume:80 mL Oral: No COMPARISON: No exams were available for comparison FINDINGS: ABDOMEN: Lung Bases: There are small bilateral pleural effusions and subjacent infiltrates. This may represent atelectasis. Liver: Normal density. No measurable mass. Portal, Superior Mesenteric, and Splenic Veins: Unremarkable. Gallbladder and Biliary Tract: No radiodense calculus or dilation. Pancreas: Normal density, no abnormal calcifications or inflammatory process. Spleen: Normal. Adrenals: No masses seen. Kidneys: Normal size, contour and axis. No radiodense stones or obstructive uropathy. No masses seen. Abdominal Aorta: Abdominal portion non-dilated. Bowel: No obstruction or bowel wall thickening. There is no evidence of appendicitis. Peritoneal Cavity: There is a small amount of free fluid in the pelvis. There is a small amount of free air in the abdomen. Lymph Nodes: Within normal limits. Bones: Within normal limits for the patient's age. Soft Tissues: There is air seen in the anterior abdominal wall subcutaneous tissues and the anterior abdominal wall musculature. PELVIS: Bladder: There is a Solomon catheter seen in the urinary bladder. The urinary bladder is decompressed. Reproductive Organs: There is an enlarged uterus. There is air seen within the endometrial canal. There is a defect seen in the inferior anterior uterus which may reflect section. There is a air-fluid collection seen posterior to the urinary bladder. On series 9 images 37 through 41 and series 13, images 107-114 there appears to be disruption of the posterior wall of the lower uterine segment or probably cervix which communicates with the with a large air-fluid collection in the pelvis. The large fluid collection measures 7 x 9.7 cm. Lymph Nodes: Within normal limits. Bones: Within normal limits for the patient's age. IMPRESSION: 1. The patient is status post section. The uterus is enlarged consistent with the post uterus. There is a small amount of air seen within the endometrial canal which may reflect the patient's section. 2. There is a large air-fluid collection seen in the posterior pelvis interposed between the uterus and the rectum measuring 9.7 x 7 cm. There is disruption of the posterior wall of the lower uterus or cervix which communicates with this air-fluid collection. (Series 9, images 37-41 and series 13, images [id number]). This may represent a hematoma which may be intramural, possible abscess. There is a mass effect on the adjacent bowel and urinary bladder. It does appear to be separate from the decompressed urinary bladder. 3. There is a tiny amount of free fluid in the pelvis which is likely postsurgical. 4. There is also tiny amount of free air in the abdomen likely related to the patient's is air in section. Likewise, there is air in the anterior abdominal wall and anterior abdominal wall musculature which is likely postsurgical. 5. Small pleural effusions and subjacent infiltrates which may represent atelectasis. 6. The findings were discussed with the patient's primary care team at 10:30 a.m. on 05/02/2025. RADIATION DOSE DELIVERED: 1,315.6mGy.cm Total DLP 1,315.6mGy.cm Total DLP DATA REPOSITORY: All CT scans at this facility are submitted to the National Radiology Data Registry (NRDR) Dose Index Registry (DIR) with the [employer] (ACR). RADIATION OPTIMIZATION: All CT scans at this facility use at least one of these dose optimization techniques: automated exposure control; mA and/or kV adjustment per patient size (includes targeted exams where dose is matched to clinical indication); or iterative reconstruction.
--- NOTE | 2025-05-02 | DI.RAD_ITS ---
Exam(s) XR PORTABLE CHEST AP EXAM: XR PORTABLE CHEST AP CLINICAL HISTORY: hypoxemia. TECHNIQUE: 2D digital imaging was performed. COMPARISON: No exams were available for comparison FINDINGS: Single AP portable view. Heart size is upper normal. The mediastinum is not widened. Lungs are clear. No infiltrates nor obvious pleural effusions. There is overall artifact over the right lung apex. IMPRESSION: No acute pulmonary findings on this single AP portable view of the chest. DATA REPOSITORY: RADIATION DOSE DELIVERED:
--- NOTE | 2025-05-02 00:04 | PGE_ITS ---
Date of Service Date of service: 05/02/25 Time of Service: 00:04 Assessment and Plan Assessment and plan (1) Hypotension after procedure: Status: Acute Assessment and plan: Called back into the patient's room as she was notably hypotensive (80's / 50's); she was not symptomatic, however, and she denied any concerns. Assessment of her abdomen and bleeding were reassuring. No urine in vergara since returning from the OR. Magnesium was halved to 1, fluid bolus opened, and she was given 5 mg of Ephedrine. Associated labs collected. BP's have stabilized following administration of ephedrine. Will continue close monitoring and will f/u on labs. Subjective Subjective Interval history since last seen: Hypotensive following case Exam Narrative Exam Narrative: general: Well nourished female in no immediate distress Pulm: No overt respiratory distress; CTAB Card: No overt errythmias or murmurs Abdomen: Non-distended, fundus firm and low; Incision covering clean Ext: +1 edema noted equally bilaterally Crede: Appropriate lochia Objective Last Vital Signs Temp 98.2 F 05/01/25 19:42 Pulse 113 H 05/02/25 00:03 Resp 16 05/01/25 19:42 BP 109/59 L 05/02/25 00:01 Pulse Ox 96 05/02/25 00:03 Laboratory Results - last 24 hr 05/01/25 05/01/25 05/01/25 16:25 21:00 23:45 WBC 10.53 17.80 H RBC 4.01 3.11 L Hgb 12.1 9.4 L D Hct 35.1 L 27.9 L MCV 88 90 MCH 30.2 30.2 MCHC 34.5 33.7 RDW 13.9 13.9 Plt Count 189 173 MPV 11.0 10.9 Sodium 139 Potassium 3.7 Chloride 106 Carbon Dioxide 22.2 Anion Gap 10.8 BUN 6 L Creatinine 0.6 Est GFR (CKD-EPI 2020) 127.67 Glucose 85 Calcium 8.6 Magnesium Cancelled Total Bilirubin 0.4 AST 15 ALT 17 Alkaline Phosphatase 151 H Total Protein 6.3 L Albumin 2.6 L Time Spent with Patient Time Spent with Patient: 35-49 minutes Time was spent: preparing to see the patient(eg.review tests), obtaining and/or reviewing separately otained hiistory, ordering medications,tests, procedures, referring, communicating with other health animal care technician, indepentently interpreting results and counseling the patient
[2025-05-02 00:07] LABS: INR 1.0 (0.9-1.1); PTT Activated 24.2 sec (20.6-30.2); Prothrombin Time 9.9 sec (9.1-11.1)
[2025-05-02 00:19] LABS: Magnesium 5.8 mg/dL (1.8-2.4)
[2025-05-02 00:25] LABS: Ferritin 20 ng/mL (8-252)
[2025-05-02] MEDS: Ketorolac 30 MG/ML VIAL IVP (04:10)
[2025-05-02] MEDS: Acetaminophen 325 MG TAB 650 MG PO (04:10)
[2025-05-02] MEDS: Lactated Ringers 1,000 ML 120 ML IV (04:58)
[2025-05-02] MEDS: MAGNESIUM SULFATE 20 GM/500 ML BAG IV_INF (04:59)
[2025-05-02] MEDS: Oxytocin/Normal Saline 30 UNIT/500 ML BAG 95 UNITS IV ×3 (06:35→15:55)
[2025-05-02] MEDS: miSOPROStol 200 MCG TAB 800 MCG PR (07:45)
[2025-05-02] MEDS: Carboprost 250 MCG/ML AMP (07:55)
--- NOTE | 2025-05-02 08:11 | W.PM.PROGNOT ---
Date of Service Date of service: 05/02/25 Time of Service: 08:54 Assessment and Plan Assessment and plan (1) hemorrhage: Status: Acute Assessment and plan: PP bleeding 1195 cc's. I awoke this morning to a phone call from the nurses stating Ms. Washington called out stating she felt like she was passing a clot. When they went into assess her she was laying in blood. They cleared her chucks and found her fundus boggy, though improved with crede. When I went into assess her myself, she was noted to have a relatively clean otoniel under her, though they had just changed the chucks. The nurse from the evening reported bleeding that had been ok all night, though her UOP had been low at 20 cc's an hour. The urine in her vergara is concentrated but yellow and clear. When I assess her, her fundus high and deviated to the right but resolves with crede. I called for Cytotec and Hemabate, which were given, and called for Pitocin to be bolused. Her bleeding improved and I stepped out to enter lab orders while the nurse exchanged her vergara. When I went back in the patient still had a small trickle, though fundus felt firm. I called for TXA and stat CT. At this point, the patient's bleeding is notably improved. She is asymptomatic and vitals are stable and appropriate. Objective Last Vital Signs Temp 96.8 F L 05/02/25 00:30 Pulse 106 H 05/02/25 07:58 Resp 16 05/02/25 00:45 BP 153/78 H 05/02/25 07:58 Pulse Ox 100 05/02/25 07:40 Laboratory Results - last 24 hr 04/30/25 05/01/25 05/01/25 17:43 16:25 21:00 WBC 10.53 RBC 4.01 Hgb 12.1 Hct 35.1 L MCV 88 MCH 30.2 MCHC 34.5 RDW 13.9 Plt Count 189 MPV 11.0 PT INR APTT Sodium 139 Potassium 3.7 Chloride 106 Carbon Dioxide 22.2 Anion Gap 10.8 BUN 6 L Creatinine 0.6 Est GFR (CKD-EPI 2020) 127.67 Glucose 85 Calcium 8.6 Magnesium Cancelled Ferritin Total Bilirubin 0.4 AST 15 ALT 17 Alkaline Phosphatase 151 H Total Protein 6.3 L Albumin 2.6 L Rhogam Unit Number [id number] Unit Expiration Date 09/21/25 Product Lot # [id number] 05/01/25 23:45 WBC 17.80 H RBC 3.11 L Hgb 9.4 L D Hct 27.9 L MCV 90 MCH 30.2 MCHC 33.7 RDW 13.9 Plt Count 173 MPV 10.9 PT 9.9 INR 1.0 APTT 24.2 Sodium Potassium Chloride Carbon Dioxide Anion Gap BUN Creatinine Est GFR (CKD-EPI 2020) Glucose Calcium Magnesium 5.8 H* Ferritin 20 Total Bilirubin AST ALT Alkaline Phosphatase Total Protein Albumin Rhogam Unit Number Unit Expiration Date Product Lot # Time Spent with Patient Time Spent with Patient: 35-49 minutes Time was spent: preparing to see the patient(eg.review tests), obtaining and/or reviewing separately otained hiistory, ordering medications,tests, procedures, referring, communicating with other health animal caretaker supervisor, indepentently interpreting results and counseling the patient
[2025-05-02 08:18] LABS: HCT 23.5 % (36.0-46.0); MCH 31.0 pg (27.0-33.0); MCHC 34.5 % (32.0-36.0); MCV 90 fL (80-95); MPV 10.7 fL (8.0-11.0); Platelet Count 172 10^3/uL (130-400); RBC 2.61 10^6/uL (3.93-5.22); RDW 14.0 % (11.7-14.6); RDW-SD 46.0 fL; WBC 15.53 10^3/uL (4.4-10.8)
[2025-05-02 08:30] LABS: INR 1.0 (0.9-1.1); PTT Activated 24.3 sec (20.6-30.2); Prothrombin Time 9.7 sec (9.1-11.1)
[2025-05-02 08:35] LABS: ALT 19 U/L (14-59); AST 36 U/L (15-37); Albumin 2.1 g/dL (3.4-5.0); Alkaline Phosphatase 114 U/L (46-116); Anion Gap 9.7 mmol/L (3-11); BUN 8 mg/dL (7-18); Bilirubin, Total 0.3 mg/dL (0.2-1.0); CO2 21.3 mmol/L (21.0-32.0); Calcium 7.5 mg/dL (8.5-10.1); Chloride 104 mmol/L (98-107); Glucose 102 mg/dL (74-106); Potassium 4.6 mmol/L (3.5-5.1); Sodium 135 mmol/L (136-145); Total Protein 5.0 g/dL (6.4-8.2)
[2025-05-02 08:38] LABS: Magnesium 4.9 mg/dL (1.8-2.4)
[2025-05-02 08:41] LABS: HGB 8.1 g/dL (11.2-15.7)
[2025-05-02] MEDS: Tranexamic Acid 1,000 MG/10 ML VIAL 1000 MG IVP (09:47)
[2025-05-02] MEDS: Omnipaque 350 MG/ML 100 ML BTL IJ (09:52)
[2025-05-02] MEDS: Normal Saline - Diluent 50 ML VIAL IJ (09:53)
[2025-05-02] MEDS: Normal Saline Flush 10 ML SYR IVP ×3 (09:54→17:46)
[2025-05-02] MEDS: PARoxetine 20 MG TAB PO (10:13)
[2025-05-02] MEDS: oxyCODONE 5 MG TAB PO (10:13)
[2025-05-02] MEDS: Lactated Ringers 1,000 ML 999 ML IV (10:41)
--- NOTE | 2025-05-02 10:56 | SCONE_ITS ---
Date of service: 05/02/25 Time of Service: 10:56 Assessment and Plan Assessment and plan (1) Pelvic hematoma, : Status: Acute Assessment and plan: Hematoma in pelvis, no active extravasation and no shock or hypotension presently. She is fluid responsive, with UOP picking up well after fluid bolus. Hematoma may be from delivery trauma or from a persistent source of bleeding such as uterine laceration, CT findings noted and reviewed w Dr Jack. I feel exploration is prudent since radiologist expresses concern about a possible communication between the lower uterine segment/cervix and the hematoma. Rechecking CBC parameters every 4 hours until definitive management of bleeding has occured or until bleeding slows/stops. I plan to stay available to help with transfusion needs and surgical management as needed. (2) Acute blood loss anemia: Status: Acute Assessment and plan: , post bleeding and intrapelvic hematoma, as well as a component of dilution from fluids all resulting in anemia. Managing expectantly with close monitoring, resuscitation, blood products available on hand and as needed, and plan for exploration and control of any residual active bleeding. Pt has been given 2g of TXA and coags are normal at this time. No evidence of DIC from bleeding. Plan is for transfusion for signs of progressing to shock, or ongoing bleeding w hgb <7.5. History of Present Illness Narrative: 25yo F POD 1 s/p c section who has a pelvic hematoma on CT. She was admitted with preecclampsia and underwent c section on 05/01/25. C section was uncomplicated w delivery of a healthy baby girl. Her UOP has decreased today and she has had more than expected vaginal bleeding. CT scan was completed and shows a hematoma between rectum and uterus. Radiologist communicates a concern about a possile laceration/defect in the uterus posteriorly. She has had vaginal bleeding today. She is alert. She feels tired. No abdominal pain. feels mild pelvic cramping. HR 110s, BP still elevated 150s. She is on ptocin drip and magnesium drip. Family at bedside including spouse/partner, and his parents. PFSH All Active Problems (Updated 05/02/25 @ 12:16 by Leyla Simon MD) Acute blood loss anemia (Acute) Post-operative complication (Acute) Pelvic hematoma, (Acute) hemorrhage (Acute) Hypotension after procedure (Acute) Pre-eclampsia affecting childbirth (Acute) Chronic hypertension during (Acute) Placenta previa antepartum in second trimester (Acute) Stage 1 hypertension (Acute) Medication exposure during first trimester of (Acute) Rh negative status during (Acute) (Acute) Depression with anxiety (Acute) Medical History 28 weeks gestation of Contraception (04/17/16) Missed menses History of alcohol use Surgical History [place] teeth removed Family History Grandfather Skin cancer Stroke paternal Grandmother Breast cancer Heart disease Grandmother Breast cancer maternal Grandfather Non Hodgkin's lymphoma maternal Father Alcohol use disorder Social History Smoking/Tobacco Use Status: Former Tobacco Use Smoking risk assessment performed?: Yes Alcohol Intake: former Year quit: 2023 Drug use: Never Housing: house Number of Children: 0 Education Level: college Sexually active: Yes Do you think of yourself as: straight/heterosexual Current gender identity: female What is your relationship status?: Panel score (0-1 are the most socially isolated patients): 1 What type of physical activity do you participate in: none Berkley/Nondenominational: None Do you feel safe at home: Yes Do you feel safe in your relationship?: Yes Female Reproductive History Menstrual Age of Menarche: 12 Duration of menses: 6-7 days control method: pills and condoms History History 2 2 Para 0 Hx # Term Pregnancies 0 Multiple births 0 Hx # Pregnancies 0 Ectopic pregnancies 0 AB induced 0 Hx Number of Living Children 0 AB spontaneous 1 Past Pregnancies Del. Date GA/Weeks # Preg Succ Route Wgt Sex Labor Lgth Anesth esia Location Prov [facility] 08/09/24 2 No Exam Narrative Exam Narrative: awake, NAD, appears tired/fatigued eomi, MMM, swollin evident in nose and periorbits midline trachea, neck is symmetric PULM: normal resp effort, equal chest rise with respiration, no wheezing audible CARDIAC: normal PMI, no jvd, mild tachycardia 105-110, normal perfusion centrally and peripherally. abdomen is immediately with palpable fullness as expected. Nontender exam. No expanding hematoma. extremities are without deformity, normal movement of all four extremities speech is clear and coherent mood and affect are congruent, no focal neurological deficits skin without rash Results Last Vital Signs Temp 96.8 F L 05/02/25 00:30 Pulse 123 H 05/02/25 10:55 Resp 16 05/02/25 00:45 BP 141/89 H 05/02/25 10:48 Pulse Ox 100 05/02/25 10:55 Labs 05/02/25 08:04 05/02/25 08:04 Labs: Laboratory Results - last 24 hr 04/30/25 05/01/25 05/01/25 17:43 16:25 21:00 WBC 10.53 RBC 4.01 Hgb 12.1 Hct 35.1 L MCV 88 MCH 30.2 MCHC 34.5 RDW 13.9 Plt Count 189 MPV 11.0 PT INR APTT Sodium 139 Potassium 3.7 Chloride 106 Carbon Dioxide 22.2 Anion Gap 10.8 BUN 6 L Creatinine 0.6 Est GFR (CKD-EPI 2020) 127.67 Glucose 85 Calcium 8.6 Magnesium Cancelled Ferritin Total Bilirubin 0.4 AST 15 ALT 17 Alkaline Phosphatase 151 H Total Protein 6.3 L Albumin 2.6 L ABO/Rh A Negative Antibody Screen POSITIVE Antibody Identification Anti-D Rhogam Unit Number [id number] Unit Expiration Date 09/21/25 Product Lot # [id number] 05/01/25 05/02/25 23:45 08:04 WBC 17.80 H 15.53 H RBC 3.11 L 2.61 L Hgb 9.4 L D 8.1 L Hct 27.9 L 23.5 L MCV 90 90 MCH 30.2 31.0 MCHC 33.7 34.5 RDW 13.9 14.0 Plt Count 173 172 MPV 10.9 10.7 PT 9.9 9.7 INR 1.0 1.0 APTT 24.2 24.3 Sodium 135 L Potassium 4.6 Chloride 104 Carbon Dioxide 21.3 Anion Gap 9.7 BUN 8 Creatinine 0.8 Est GFR (CKD-EPI 2020) 104.80 Glucose 102 Calcium 7.5 L Magnesium 5.8 H* 4.9 H* Ferritin 20 Total Bilirubin 0.3 AST 36 ALT 19 Alkaline Phosphatase 114 Total Protein 5.0 L Albumin 2.1 L ABO/Rh Antibody Screen Antibody Identification Rhogam Unit Number Unit Expiration Date Product Lot #
[2025-05-02 10:59] LABS: Glucose Negative (Negative)
[2025-05-02] MEDS: ceFAZolin 2 GM/50 ML BAG IVPB (11:01)
[2025-05-02 11:05] LABS: C & S Indicated? No; RBC 20-50 HPF (0-2); WBC 0-2 HPF (0-5)
--- NOTE | 2025-05-02 11:10 | PGE_ITS ---
Date of Service Date of service: 05/02/25 Time of Service: 11:11 Assessment and Plan Assessment and plan (1) Post-operative complication: Status: Acute Assessment and plan: Since my last note, bleeding has been notably slower. Imaging is concerning for a posterior hematoma. General surgery consulted to assist; at first, we suspected that her low urine output was due to blood loss given the drop in her hemoglobin. Ureters appeared to be appropriate and without issue on the imaging. Suspected that the bleeding that we saw this morning vaginally may have been related to uterine atony secondary to deflection of the uterus from the posterior hematoma. We had discussed monitoring serial hemoglobin levels and patient's clinical status before pursuing any sort of surgical intervention. However, I received a phone call from radiology expressing concern about communication between the lower, posterior wall of the uterus versus upper, posterior wall of the cervix and the hematoma based on free air noted in both locations and potential defect. On closer inspection, I am concerned for this communication. The patient section was completed without issue, and I cannot think of a reason for involvement of the posterior margin of either the cervix or the uterus; however, the patient is noted to have a history of a low- lying posterior placenta which may suggest some form of issue with the posterior wall. I discussed all of this with the patient and the need for surgical exploration. I will be taking my partner Dr. Roman to the OR to help me with the gynecological component as well as general surgery (Dr. Solis) with us for assessment of the posterior wall and abdominal cavity. I discussed with the patient and her family the potential need for blood transfusion. We discussed that we would be doing a vaginal exam under anesthesia to assess the cervix and below as well as a diagnostic laparoscopy to evaluate the posterior uterine wall from above and potentially evacuate the hematoma. We discussed that if I run into excessive bleeding that I cannot control. There is a chance that she may end up with a hysterectomy and that this would be no more children in the future. 2 units of packed red blood cells have been typed and held for this patient. All questions were answered to the patient and her family satisfaction. We will proceed to the OR with the patient consented for vaginal exam under anesthesia as well as diagnostic laparotomy with possible hysterectomy. Subjective Subjective Interval history since last seen: Potential posterior wall defect appreciated on imaging. Objective Last Vital Signs Temp 96.8 F L 05/02/25 00:30 Pulse 112 H 11/09/25 11:09 Resp 16 05/02/25 00:45 BP 141/89 H 05/02/25 10:48 Pulse Ox 99 05/02/25 11:05 Laboratory Results - last 24 hr 04/30/25 05/01/25 05/01/25 17:43 16:25 21:00 WBC 10.53 RBC 4.01 Hgb 12.1 Hct 35.1 L MCV 88 MCH 30.2 MCHC 34.5 RDW 13.9 Plt Count 189 MPV 11.0 PT INR APTT Sodium 139 Potassium 3.7 Chloride 106 Carbon Dioxide 22.2 Anion Gap 10.8 BUN 6 L Creatinine 0.6 Est GFR (CKD-EPI 2020) 127.67 Glucose 85 Calcium 8.6 Magnesium Cancelled Ferritin Total Bilirubin 0.4 AST 15 ALT 17 Alkaline Phosphatase 151 H Total Protein 6.3 L Albumin 2.6 L Urine Color Urine Clarity Urine pH Ur Specific [place] Urine Protein Urine Ketones Urine Blood Urine Nitrite Urine Bilirubin Urine Urobilinogen Ur Leukocyte Esterase Urine RBC Urine WBC Ur Epithelial Cells Urine Bacteria Urine Casts Urine Mucus Ur Culture Indicated? Urine Glucose ABO/Rh A Negative Antibody Screen POSITIVE Antibody Identification Anti-D Rhogam Unit Number [id number] Unit Expiration Date 09/21/25 Product Lot # [id number] 05/01/25 05/02/25 05/02/25 23:45 08:01 08:04 WBC 17.80 H 15.53 H RBC 3.11 L 2.61 L Hgb 9.4 L D 8.1 L Hct 27.9 L 23.5 L MCV 90 90 MCH 30.2 31.0 MCHC 33.7 34.5 RDW 13.9 14.0 Plt Count 173 172 MPV 10.9 10.7 PT 9.9 9.7 INR 1.0 1.0 APTT 24.2 24.3 Sodium 135 L Potassium 4.6 Chloride 104 Carbon Dioxide 21.3 Anion Gap 9.7 BUN 8 Creatinine 0.8 Est GFR (CKD-EPI 2020) 104.80 Glucose 102 Calcium 7.5 L Magnesium 5.8 H* 4.9 H* Ferritin 20 Total Bilirubin 0.3 AST 36 ALT 19 Alkaline Phosphatase 114 Total Protein 5.0 L Albumin 2.1 L Urine Color Yellow Urine Clarity Clear Urine pH 5.5 Ur Specific [place] >= 1.030 H Urine Protein Trace Urine Ketones 15 H Urine Blood Large H Urine Nitrite Negative Urine Bilirubin Negative Urine Urobilinogen 0.2 Ur Leukocyte Esterase Negative Urine RBC 20-50 H Urine WBC 0-2 Ur Epithelial Cells Few Urine Bacteria Few Urine Casts 3-5 Hyaline Urine Mucus Moderate Ur Culture Indicated? No Urine Glucose Negative ABO/Rh Antibody Screen Antibody Identification Rhogam Unit Number Unit Expiration Date Product Lot # Time Spent with Patient Time Spent with Patient: 35-49 minutes Time was spent: preparing to see the patient(eg.review tests), obtaining and/or reviewing separately otained hiistory, ordering medications,tests, procedures, referring, communicating with other health respiratory care assistant, indepentently interpreting results, counseling the patient and care coordination
[2025-05-02 11:47] LABS: Creatinine,Urine 188.64 mg/dL
--- NOTE | 2025-05-02 11:53 | ANES.PREOP_ITS ---
General Info Date of Service Date Performed: 05/02/25 Height: 5 ft Weight: 73.028 kg Body Mass Index (BMI): 31.4 Surgical Procedure: Operation Date: 05/01/25 21:00 Proposed Procedure Side Surgeon p Section Adrienne Trammell, DO Actual Procedure Side Surgeon p Section Adrienne Trammell DO Pre-Op Diagnosis Post-Op Diagnosis CHRONIC HYPERTENSION CHRONIC HYPERTENSION Operation Date: 05/02/25 12:30 Proposed Procedure Side Surgeon p Hysterectomy Abdominal Adrienne Trammell, DO Actual Procedure Side Surgeon p Hysterectomy Abdominal Adrienne Trammell, Meds Allergies and Home Medications Allergies Allergy/AdvReac Type Severity Reaction Status Date / Time No Known Drug Allergies Allergy Other (See Verified 03/31/25 13:31 Comment) Home Medication Medication Instructions Recorded paroxetine HCl 20 mg tablet 20 mg PO DAILY 09/07/24 aspirin 81 mg tablet,delayed 162 mg (2 x 81 mg) PO GRACIA LY #60 12/16/24 release tabs vitamins no.180-ferrous 1 tab PO DAILY #90 ta bs 12/16/24 fumarate 27 mg-folic acid 1 mg tablet ( Plus Vitamin-Mineral) magnesium glycinate 100 mg (as 100 mg PO BID #60 tabs 02/10/25 glycinate) tablet (Mag Glycinate) ondansetron 4 mg disintegrating 4 mg PO Q6H PRN nausea and 02/10/25 tablet vomiting #20 tabs labetalol 100 mg tablet 300 mg (3 x 100 mg) PO BID # 270 04/20/25 tabs Current Visit Medications: Current Medications Generic Name Dose Route Start Last Admin Trade Name Jesuq PRN Reason Stop Dose Admin Acetaminophen 650 mg 05/01/25 22:30 05/02/25 04:10 Acetaminophen 325 Mg Tab PO 650 mg Q4H PRN PRN Administration Citric Acid/Sodium Citrate 30 ml 05/01/25 21:00 Sodium Citrate 30 Ml Cup PO PREOP NIYA Dinoprostone 10 mg 05/01/25 09:45 05/01/25 10:01 Dinoprostone-Cervical 10 Mg Vsupp VG 10 mg DIRECTED NIYA Administration Docusate Sodium 100 mg 05/01/25 22:30 Docusate Sodium 100 Mg Cap PO BID PRN PRN Magnesium Sulfate 20 gm in 500 mls @ 50 mls/hr 05/01/25 17:00 05/02/25 04:59 IV_INF 1 gm/hr INFUSION [facility] 25 mls/hr Protocol Administration 2 GM/HR Oxytocin/Sodium Chloride 30 unit in 500 mls @ 2 mls/hr 05/01/25 18:00 05/01/25 19:47 Pitocin/Normal Saline IV 4 milliunits/min INFUSION NIYA 4 mls/hr Protocol Titration 2 MILLIUNITS/MIN Naloxone HCl 2 mg/ Sodium 500 mls @ 9.129 mls/hr 05/01/25 22:07 Chloride IV INFUSION PRN PRURITIS 0.5 MCG/KG/HR Oxytocin/Sodium Chloride 30 unit in 500 mls @ 95 mls/hr 05/01/25 22:30 05/02/25 10:42 Pitocin/Normal Saline IV 95 mls/hr INF[facility]ION [facility] 95 mls/hr Protocol Administration Ringer's Solution 1,000 mls @ 120 mls/hr 05/01/25 22:30 05/02/25 09:56 IV 999 mls/hr INF[facility]ION [facility] Titration IV Miscellaneous Supplies 1 each 04/30/25 17:30 Iv Access IV DIRECTED [facility] Ibuprofen 600 mg 05/07/25 12:00 Ibuprofen 600 Mg Tab PO Q6H PRN PRN Iohexol 100 ml 05/02/25 10:00 05/02/25 09:52 Omnipaque 350 Mg/Ml 100 Ml Btl IJ 06/01/25 23:59 100 ml DIRECTED [facility] Administration Ketorolac Tromethamine 30 mg 05/02/25 04:00 05/02/25 04:10 Ketorolac 30 Mg/Ml Vial IVP 05/07/25 03:59 30 mg Q6H PRN PRN Administration Abdominal Pain Labetalol HCl 300 mg 05/02/25 08:30 Labetalol 100 Mg Tab PO TID [facility] Metoclopramide HCl 10 mg 05/01/25 22:30 Metoclopramide 10 Mg/2 Ml Vial IVP Q6H PRN PRN Naloxone HCl 0 mg 05/01/25 22:07 Naloxone 0.4 Mg/Ml Vial IVP 05/02/25 22:07 DIRECTED PRN Naloxone HCl 0.04 mg 05/01/25 22:07 Naloxone 0.4 Mg/Ml Vial IVP PRN PRN PRURITIS Oxycodone HCl 5 mg 05/01/25 22:30 05/02/25 10:13 Oxycodone 5 Mg Tab PO 5 mg Q4H PRN PRN Administration Paroxetine HCl 20 mg 05/01/25 08:30 05/02/25 10:13 Paroxetine 20 Mg Tab PO 20 mg DAILY NIYA Administration Sodium Chloride 0 ml 04/30/25 17:20 Normal Saline Flush 10 Ml Syr IVP PRN PRN Sodium Chloride 0 ml 04/30/25 20:00 05/01/25 11:30 Normal Saline Flush 10 Ml Syr IVP Not Given BID NIYA Sodium Chloride 0 ml 04/30/25 17:20 Normal Saline 10 Ml Vial IJ DIRECTED PRN Sodium Chloride 50 ml 05/02/25 10:00 05/02/25 09:53 Normal Saline - Diluent 50 Ml Vial IJ 100 ml DIRECTED NIYA Administration Terbutaline Sulfate 0.25 mg 04/30/25 17:20 Terbutaline 1 Mg/Ml Vial SC PRN PRN PFSH Active Problems Active Problems: Problem Status Onset Code Post-operative complication Acute T81.9XXA Pelvic hematoma, Acute O71.7 hemorrhage Acute O72.1 Hypotension after procedure Acute I95.81 Pre-eclampsia affecting childbirth Acute O14.94 Chronic hypertension during Acute O10.919 Placenta previa antepartum in second trimester Acute O44.02 Stage 1 hypertension Acute I10 Medication exposure during first trimester of Acute O09.891 Rh negative status during Acute O26.899, Z67.91 Acute Z34.90 Depression with anxiety Acute F41.8 Medical History Medical History 28 weeks gestation of Contraception (04/17/16) Missed menses History of alcohol use Surgical History Surgical History [place] teeth removed Tobacco Smoking/Tobacco Use Status: Former Tobacco Use Alcohol Alcohol Intake: former Year quit: 2023 Substance Use Substance use: Never Prental History History 2 2 Para 0 Hx # Term Pregnancies 0 Multiple births 0 Hx # Pregnancies 0 Ectopic pregnancies 0 AB induced 0 Hx Number of Living Children 0 AB spontaneous 1 Past Pregnancies Del. Date GA/Weeks # Preg Succ Route Wgt Sex Labor Lgth Anesth esia Location Prov Complic 08/09/24 2 No Vital Signs and Lab Results Vital Signs Most Recent Vital Signs in EMR: Most Recent Vital Signs Temp Pulse Resp BP Pulse Ox 36 C L 120 H 16 134/81 99 05/02/25 00:30 05/02/25 11:50 05/02/25 00:45 05/02/25 11:49 05/02/25 11:50 Lab Results 05/02/25 08:04 05/02/25 08:04 Blood Type / Crossmatch: 2 Antibody Screen POSITIVE 04/30/25 Complete Blood Count: 2 WBC, (4.4-10.8) 15.53 10^3/uL H Today, 08:04 RBC, (3.93-5.22) 2.61 10^6/uL L Today, 08:04 Hgb, (11.2-15.7) 8.1 g/dL L Today, 08:04 Hct, (36.0-46.0) 23.5 % L Today, 08:04 Plt Count, (130-400) 172 10^3/uL Today, 08:04 Complete Metabolic Panel: 2 Sodium, (136-145) 135 mmol/L L Today, 08:04 Potassium, (3.5-5.1) 4.6 mmol/L Today, 08:04 Chloride, (98-107) 104 mmol/L Today, 08:04 Carbon Dioxide, (21.0-32.0) 21.3 mmol/L Today, 08:04 BUN, (7-18) 8 mg/dL Today, 08:04 Creatinine, (0.55-1.02) 0.8 mg/dL Today, 08:04 Est GFR (CKD-EPI 2020), (mL/min/1.73m2) 104.80 Today, 08:04 Magnesium, (1.8-2.4) 4.9 mg/dL H* Today, 08:04 Calcium, (8.5-10.1) 7.5 mg/dL L Today, 08:04 Albumin, (3.4-5.0) 2.1 g/dL L Today, 08:04 Glucose, (74-106) 102 mg/dL Today, 08:04 Liver Function Panel: 2 ALT, (14-59) 19 U/L Today, 08:04 AST, (15-37) 36 U/L Today, 08:04 Coagulation Panel: 2 INR, (0.9-1.1) 1.0 Today, 08:04 PT, (9.1-11.1) 9.7 sec Today, 08:04 APTT, (20.6-30.2) 24.3 sec Today, 08:04 Fibrinogen Pending Today, 08:04 Anesthesia Assessment and Plan Anesthesia History Personal History: No History of Anesthesia Complications Family History: No Family History of Anesthesia Complications Exercise Tolerance Exercise Tolerance: Metabolic Equivalents>4 Pertinent Negatives Pertinent Negatives: No Major Cardiovascular Symptoms or Complaints and No Major Pulmonary Symptoms or Complaints Cardiac & Pulmonary Exam Cardiac Exam: Normal S1/S2 Heart Sounds Pulmonary Exam: Clear Bilateral Breath Sounds Implantable Cardiac Device Does patient have a Pacemaker or an ICD?: No Airway Exam Known Difficult Airway: No Mallampati Class: 3 Mouth Opening: Normal (> 3cm) Thyromental Distance: Greater than 3 cm Neck Range of Motion: Full ROM Neck Circumference: Normal Teeth Condition: Normal Dentition ASA Classification ASA Score: ASA 3 Emergency Case?: Yes NPO Status NPO Status: Full Stomach Status Status: Confirmed Anesthesia Plan Resuscitation Status: Full Code Anesthesia Technique: General Anesthesia (RSI) Airway Planned: Endotracheal Tube Monitors Used: Standard Monitors and SedLine Preoperative Comments:: CT Scan reviewed, blood on hold
[2025-05-02] MEDS: RHO(D) Immune Globulin 1,500 UNIT Syringe 1500 UNIT IM (11:58)
[2025-05-02 12:50] LABS: MCH 30.7 pg (27.0-33.0); MCHC 34.2 % (32.0-36.0); MCV 90 fL (80-95); MPV 10.9 fL (8.0-11.0); Platelet Count 142 10^3/uL (130-400); RBC 2.05 10^6/uL (3.93-5.22); RDW 14.1 % (11.7-14.6); RDW-SD 46.5 fL; WBC 11.96 10^3/uL (4.4-10.8)
[2025-05-02 12:52] LABS: HGB 6.3 g/dL (11.2-15.7)
[2025-05-02 12:54] LABS: HCT 18.4 % (36.0-46.0)
--- NOTE | 2025-05-02 13:28 | W.ANESVAS ---
Arterial Line Placement Date Performed: 05/02/25 Procedure Time: 13:12 Procedure Location: Operating Room Requesting Provider: Lisa Tom Timeout Performed: Yes Sedation Given (Indicate Dose Given): No Sedation given Patient Mental Status: Performed under general anesthesia Sterility: Hand Hygiene, Surgical Cap, Surgical Mask, Sterile Gloves, Sterile Drape/Sheet and Chlorhexidine Laterality: Right Insertion Site: Radial Arterial Line Catheter: 20G [place] Arterial Line Procedure: Vessel accessed with needle, Vessel accessed with catheter over needle, Guidewire placed with ease, Catheter placed without resistance and Guidewire removed Dressing: Tegaderm Applied, Mastisol Used and Other (Statlock) Ultrasound: Sterile probe cover and gel used Ultrasound Image Saved?: Yes Number of Attempts (See previous attempts in note section): 2 Procedure Tolerated: No Complications Procedure Outcome: Successful Performed By: Lisa Tom
[2025-05-02 13:46] LABS: Lab Add On Test DONE
--- NOTE | 2025-05-02 14:36 | W.PM.OP ---
Operative Note Operative Note Refer to Anesthesia Record ESTIMATED BLOOD LOSS: 700 Patient was transported to: floor Patient's condition: stable Procedure Description: Preoperative diagnosis: bleeding, pelvic hematoma, possible lower uterine laceration or defect Postoperative diagnosis: contained extraperitoneal hematoma of pelvis, bleeding from friable endometrium of lower uterine segment Procedure: Abdominopelvic exploration for bleeding. See Dr Friedman note for details of the entirety of the operation. Consulting Surgeon: Dr Adrienne Jack Legal Word Processor Surgeon: Dr Leyla Simon Assisting Surgeon: Dr Jessica Contreras EBL: Findings: contained nonexpanding extraperitoneal hematoma posterior left uterus extending to pelvis, all retroperitoneal no intraperitoneal component. Hysterotomy opened and area of concern on CT corresponds to an area of bleeding friable endometrium. Too friable to suture successfully, so Bakri balloon inserted and tamponade of bleeding accomplished. No major ongoing bleeding observed through balloon so closure of hysterotomy was done followed by abdominal closure. Procedure description: 25yo female patient experiencing bleeding. CT identifies a hematoma in the pelvis with a possible communication or defect in the posterior lower uterine segment just above or including the superior cervix. Vaginal and abdominal exploration was indicated given concern for possible open laceration of uterus and bleeding. Consent obtained by Dr Jack and patient taken to the operating room. In the OR she was given prophylactic antibiotics, general anesthesia was induced, and the patient was placed in lithotomy position. All pressure points were padded appropriately. Vagina/perineum were prepped and draped in usual sterile fashion, and the abdomen was prepped and draped in the usual sterile fashion. Vaginal examination by Dr Jack revealed 250mL of fresh blood and clot from above the cervix. No visible vaginal lacerations, and the source of bleeding from within the uterus was not able to be visualized through vaginal exam. Intraabdominal approach was indicated. The Pfannensteil incision was opened and the pelvis was accessed. Self retaining retractors were placed. No intraabdominal or pelvis blood was seen. At this point I scrubbed in to assist with exploration. The uterus was enlarged consistent with c section delivery last night. Hysterotomy was hemostatic. No blood within the abdomen or pelvis, and initial exam is without signs of hematoma noted on CT scan. Uterus was pulled up to open the rectal vault for examination. Posterior aspect of the left side of the uterus showed abnormal bogginess and evidence of contained hematoma. This extended inferiorly and extraperitoneal. The rectum was palpable and contained stool. There is no hematoma visible or palpable anterior to the rectum from the abdominopelvic view. The hematoma on CT scan is confirmed to be extraperitoneal and suspected to begin/extend from the posterior aspect of the uterus on the left. There is no defect or laceration of the uterus or cervix evident from the abdominopelvic view. Given the amount of vaginal bleeding, hgb drop to 6.8 today, and ongoing need to visualize and examine the uterus for a laceration/source of bleeding, the hysterotomy was opened. This gave access to viewing the endometrium in the area of concern which is the posterior wall of the lower uterine segment at the junction with the cervix. This area was examined. Clot was removed with suction. The endometrium in this area was friable and bled easily. When bleeding occurred, it was brisk. The endometrium had an abnormal appearance in this area that raises concern for possible pathology such as a placenta accreta in this area. No visible retained placenta was seen. The uterine fundus could be palpated and did not contain defects or lacerations. There was no formal laceration through the back wall of the uterus or cervix. Bimanual exam was done by the gynecologists and there is no evidence of through and through laceration or defect of the posterior uterine wall or cervix. The area of concern appears to be bleeding from abnormally friable endometrium in this area. Suture ligature of the bleeding segment was attempted but the tissue was too friable to hold suture. Bleeding slowed with pressure so Bakri balloon was placed. No additional major bleeding occurred, so decision to close the uterus and abdomen was made. See Dr Friedman note for details of the closure. I agree with Dr Friedman assessment of this case and agree with her plan to try to preserve the bleeding uterus by use of Bakri balloon tamponade. I also agree that if bleeding recurs a hysterectomy would be necessary and indicated as there is no way to suture ligate or cauterize the bleeding area within the uterus. Sponge and instrument counts were correct at the conclusion of the case. The patient tolerated the procedure. No complications. The patient did receive transfusion of 2u prbc, 1u FFP, and 1u cryo for active bleeding and anemia during this case. Date of Procedure: 05/02/25
[2025-05-02] MEDS: Bupivacaine 0.25% Pres-Free 30 ML VIAL (14:38)
[2025-05-02 15:28] LABS: Abs Immature Grans 0.08 10^3/uL (0.0-0.06); HCT 26.7 % (36.0-46.0); HGB 9.0 g/dL (11.2-15.7); Immature Grans % 0.5 %; MCH 30.2 pg (27.0-33.0); MCHC 33.7 % (32.0-36.0); MCV 90 fL (80-95); MPV 10.8 fL (8.0-11.0); Platelet Count 165 10^3/uL (130-400); RBC 2.98 10^6/uL (3.93-5.22); RDW 14.4 % (11.7-14.6); RDW-SD 46.1 fL; WBC 17.05 10^3/uL (4.4-10.8)
[2025-05-02 15:40] LABS: BE -5 mmol/L (-2-3); HCO3 21 mmol/L (22-26)
[2025-05-02 15:43] LABS: FIO2L 5 L
[2025-05-02 15:46] LABS: INR 0.9 (0.9-1.1); PTT Activated 22.7 sec (20.6-30.2); Prothrombin Time 9.3 sec (9.1-11.1)
--- NOTE | 2025-05-02 15:52 | PGE_ITS ---
Date of Service Date of service: 05/02/25 Time of Service: 15:52 Assessment and Plan Assessment and plan (1) Pelvic hematoma in female: Status: Acute (2) Pre-eclampsia: Status: Acute (3) hemorrhage: Status: Acute Assessment and plan: Patient is s/p exploratory laparotomy; Subjective Subjective Interval history since last seen: Post-operative follow up Objective Last Vital Signs Temp 98.1 F 05/02/25 11:49 Pulse 134 H 05/02/25 12:01 Resp 16 05/02/25 00:45 BP 134/81 05/02/25 11:49 Pulse Ox 97 05/02/25 12:00 Laboratory Results - last 24 hr 04/30/25 05/01/25 05/01/25 17:43 16:25 21:00 WBC 10.53 RBC 4.01 Hgb 12.1 Hct 35.1 L MCV 88 MCH 30.2 MCHC 34.5 RDW 13.9 Plt Count 189 MPV 11.0 Immature Gran % Neutrophils % Lymphocytes % Monocytes % Eosinophils % Basophils % Nucleated RBC % Absolute Neutrophils Absolute Lymphocytes Absolute Monocytes Absolute Eosinophils Absolute Basophils PT INR APTT ABG Sample Site ABG pH ABG pCO2 ABG pO2 ABG HCO3 ABG Total CO2 ABG O2 Saturation ABG Base Excess Oxygen Liter Flow FiO2 Sodium 139 Potassium 3.7 Chloride 106 Carbon Dioxide 22.2 Anion Gap 10.8 BUN 6 L Creatinine 0.6 Est GFR (CKD-EPI 2020) 127.67 Glucose 85 Calcium 8.6 Magnesium Cancelled Ferritin Total Bilirubin 0.4 AST 15 ALT 17 Alkaline Phosphatase 151 H Total Protein 6.3 L Albumin 2.6 L Urine Color Urine Clarity Urine pH Ur Specific [place] Urine Protein Urine Ketones Urine Blood Urine Nitrite Urine Bilirubin Urine Urobilinogen Ur Leukocyte Esterase Urine RBC Urine WBC Ur Epithelial Cells Urine Crystals Urine Bacteria Urine Casts Urine Mucus Ur Culture Indicated? Ur Random Creatinine Urine Glucose Add-On Test Request ABO/Rh A Negative Antibody Screen POSITIVE Antibody Identification Anti-D Rhogam Unit Number [id number] Crossmatch See Detail Unit Expiration Date 09/21/25 Product Lot # [id number] 05/01/25 05/02/25 05/02/25 23:45 08:01 08:04 WBC 17.80 H 15.53 H RBC 3.11 L 2.61 L Hgb 9.4 L D 8.1 L Hct 27.9 L 23.5 L MCV 90 90 MCH 30.2 31.0 MCHC 33.7 34.5 RDW 13.9 14.0 Plt Count 173 172 MPV 10.9 10.7 Immature Gran % Neutrophils % Lymphocytes % Monocytes % Eosinophils % Basophils % Nucleated RBC % Absolute Neutrophils Absolute Lymphocytes Absolute Monocytes Absolute Eosinophils Absolute Basophils PT 9.9 9.7 INR 1.0 1.0 APTT 24.2 24.3 ABG Sample Site ABG pH ABG pCO2 ABG pO2 ABG HCO3 ABG Total CO2 ABG O2 Saturation ABG Base Excess Oxygen Liter Flow FiO2 Sodium 135 L Potassium 4.6 Chloride 104 Carbon Dioxide 21.3 Anion Gap 9.7 BUN 8 Creatinine 0.8 Est GFR (CKD-EPI 2020) 104.80 Glucose 102 Calcium 7.5 L Magnesium 5.8 H* 4.9 H* Ferritin 20 Total Bilirubin 0.3 AST 36 ALT 19 Alkaline Phosphatase 114 Total Protein 5.0 L Albumin 2.1 L Urine Color Yellow Urine Clarity Clear Urine pH 5.5 Ur Specific [place] >= 1.030 H Urine Protein Trace Urine Ketones 15 H Urine Blood Large H Urine Nitrite Negative Urine Bilirubin Negative Urine Urobilinogen 0.2 Ur Leukocyte Esterase Negative Urine RBC 20-50 H Urine WBC 0-2 Ur Epithelial Cells Few Urine Crystals Negative Urine Bacteria Few Urine Casts 3-5 Hyaline Urine Mucus Moderate Ur Culture Indicated? No Ur Random Creatinine 188.64 Urine Glucose Negative Add-On Test Request ABO/Rh Antibody Screen Antibody Identification Rhogam Unit Number Crossmatch Unit Expiration Date Product Lot # 05/02/25 05/02/25 05/02/25 12:00 12:45 15:20 WBC 11.96 H 17.05 H RBC 2.05 L 2.98 L Hgb 6.3 L* 9.0 L D Hct 18.4 L* 26.7 L MCV 90 90 MCH 30.7 30.2 MCHC 34.2 33.7 RDW 14.1 14.4 Plt Count 142 165 MPV 10.9 10.8 Immature Gran % 0.5 Neutrophils % 84.8 Lymphocytes % 7.9 Monocytes % 6.3 Eosinophils % 0.2 Basophils % 0.3 Nucleated RBC % 0.0 Absolute Neutrophils 14.46 H Absolute Lymphocytes 1.35 Absolute Monocytes 1.07 H Absolute Eosinophils 0.03 Absolute Basophils 0.05 PT 9.3 INR 0.9 APTT 22.7 ABG Sample Site ABG pH ABG pCO2 ABG pO2 ABG HCO3 ABG Total CO2 ABG O2 Saturation ABG Base Excess Oxygen Liter Flow FiO2 Sodium Potassium Chloride Carbon Dioxide Anion Gap BUN Creatinine Est GFR (CKD-EPI 2020) Glucose Calcium Magnesium Ferritin Total Bilirubin AST ALT Alkaline Phosphatase Total Protein Albumin Urine Color Urine Clarity Urine pH Ur Specific [place] Urine Protein Urine Ketones Urine Blood Urine Nitrite Urine Bilirubin Urine Urobilinogen Ur Leukocyte Esterase Urine RBC Urine WBC Ur Epithelial Cells Urine Crystals Urine Bacteria Urine Casts Urine Mucus Ur Culture Indicated? Ur Random Creatinine Urine Glucose Add-On Test Request DONE ABO/Rh Antibody Screen Antibody Identification Rhogam Unit Number Crossmatch Unit Expiration Date Product Lot # 05/02/25 15:35 WBC RBC Hgb Hct MCV MCH MCHC RDW Plt Count MPV Immature Gran % Neutrophils % Lymphocytes % Monocytes % Eosinophils % Basophils % Nucleated RBC % Absolute Neutrophils Absolute Lymphocytes Absolute Monocytes Absolute Eosinophils Absolute Basophils PT INR APTT ABG Sample Site Arterial Line ABG pH 7.35 ABG pCO2 38 ABG pO2 67 L ABG HCO3 21 L ABG Total CO2 20 L ABG O2 Saturation 93 L ABG Base Excess -5 L Oxygen Liter Flow 5 FiO2 Unknown/Not Given Sodium Potassium Chloride Carbon Dioxide Anion Gap BUN Creatinine Est GFR (CKD-EPI 2020) Glucose Calcium Magnesium Ferritin Total Bilirubin AST ALT Alkaline Phosphatase Total Protein Albumin Urine Color Urine Clarity Urine pH Ur Specific [place] Urine Protein Urine Ketones Urine Blood Urine Nitrite Urine Bilirubin Urine Urobilinogen Ur Leukocyte Esterase Urine RBC Urine WBC Ur Epithelial Cells Urine Crystals Urine Bacteria Urine Casts Urine Mucus Ur Culture Indicated? Ur Random Creatinine Urine Glucose Add-On Test Request ABO/Rh Antibody Screen Antibody Identification Rhogam Unit Number Crossmatch Unit Expiration Date Product Lot # Time Spent with Patient Time Spent with Patient: 35-49 minutes Time was spent: preparing to see the patient(eg.review tests), obtaining and/or reviewing separately otained hiistory, ordering medications,tests, procedures, referring, communicating with other health memory care program resident, indepentently interpreting results, counseling the patient and care coordination
[2025-05-02 16:18] LABS: Fibrinogen 294 mg/dL (171-384)
[2025-05-02] MEDS: Furosemide 20 MG/2 ML VIAL IVP (16:37)
--- NOTE | 2025-05-02 16:52 | ROE_ITS ---
Operative Note Operative Note PRE-OP DIAGNOSIS: post- hemorrhage; pelvic hematoma Same PROCEDURE: Vaginal exam under anesthesia and exploratory laparotomy with placement of Jarod balloon SURGEON: Adrienne Trammell ASSISTING SURGEON: Leyla Simon MEDICATION CARE MANAGER: Liss Roman Refer to Anesthesia Record ESTIMATED BLOOD LOSS: 900 Patient was transported to: floor Patient's condition: stable Implants: Jarod balloon Indications: 25-year-old G2 now P1011 status post 37-week primary low-transverse from the evening of 05/01/2025. Patient initially presented on the evening of 04/30/2025 for an induction of labor for chronic hypertension with superimposed preeclampsia without severe features based on elevated blood pressures and a protein creatinine ratio of 0.5 during a care visit that day. She was induced with 1 dose of Cytotec and a subsequent Cervidil. Over the course of her cervical ripening, she developed progressively worsening blood pressures that necessitated increasing levels of medication. She was also noted to have an increase in the briskness of her DTRs as well as increasing generalized edema. She was diagnosed with preeclampsia with severe features based on these changes and initiated on magnesium therapy. Pitocin was initiated in order to continue the labor process; however, over the course of the labor process, the patient came to request a . After a thorough discussion of risks and benefits the patient was consented for section which was performed without issue late last night. The patient did receive 1 g of transexamic acid intraoperatively due to some brisk bleeding at the time of repair of the hysterotomy; though this resolved without issue as the repair went on. Upon returning to her room after the her blood pressures were noted to be soft and she required a dose of ephedrine. It was suspected that the hypotensive episode may also be related to the patient's sensitivity to magnesium in conjunction with the recent operation and use of spinal anesthesia. Therefore, the magnesium was decreased from 2 mg an hour to 1. She never became symptomatic, and her blood pressures ultimately stabilized. This morning, I awoke to a phone call from the nurse stating that the patient was in a pool of blood. Upon arrival to the room credé had firmed the fundus; I called for bolusing of Pitocin, Cytotec, and transexamic acid. She had a Solomon in place which was noted to be scant; the nurse informed me that her urine output had been at 20 cc an hour overnight, but that her bleeding had been appropriate. Labs revealed a drop in hemoglobin from 9.4 immediately after the surgery to 8.1 as of that morning. Platelets were noted to be stable. Imaging was performed and identified a posterior hematoma, I did discussion with the radiologist raised concern for a defect communicating between the posterior wall of the uterus and/or cervix and the hematoma itself. The patient's bleeding was largely improved at this point but she did continue to have a small trickle; I called for the administration of Hemabate, and decided we needed to proceed with her evaluation in the operating room. Patient was consented for vaginal exam under anesthesia with possible exploratory laparotomy and possible hysterectomy. I requested the assistance of my colleague, Dr. Roman, as well as general surgery, Dr. Simon, who joined me in the OR. Findings: Patient received 2 g of Ancef for prophylaxis which was redosed at the 4-hour jyoti; she also received 100 mg of doxycycline through the middle of the surgery. General anesthesia was established, and she was positioned into the modified dorsolithotomy position using yellowfin stirrups with her arms secured AB ducted to armboards. The vagina was prepped with Povidine, and the abdomen was prepped with chlorhexidine and allowed to dry for 3 minutes. A timeout was performed. An evaluation of the vagina led to the evacuation of 250 cc worth of clot. A careful assessment of the cervix as well as vaginal patino found no evidence of involvement of the structures. Bleeding was evidently coming from inside the uterus; therefore, all instruments were removed from the vagina, gloves were changed, and attention was turned to the abdomen. The abdomen was entered using a #10 blade going through the Pfannenstiel incision. Each layer of suture was dissected using the scalpel, and the peritoneal cavity was easily accessed as prior. A self-retaining retractor was placed and the bowel was packed back with moistened laps. Careful evaluation of the posterior cul-de-sac ultimately revealed a hematoma along the left–posterior wall of the uterus. There was not evidence of active bleeding and it did not appear to be expanding. There was otherwise no overt evidence of defects along the posterior wall. Dr. Simon assessed for evidence of extension of the hematoma and confirmed that she did not appreciate involvement of the surrounding bowels or rectum. After thorough discussion, given the patient's persistent bleeding and evidence of defect on the imaging, decision was made to proceed with entering the hysterotomy to evaluate the posterior wall. The hysterotomy itself was comfortably evaluated and found to be without evidence of issue. The sutures were dissected off using Vela scissors and the endometrial cavity was entered. Careful inspection of the posterior wall of the uterus revealed a small, palpable rent along the back wall. Palpation of this rent did not seem to communicate all the way through, though the tissues themselves seemed notably friable. Some bleeding was noted from the rent and attempts to secure this with suture were unsuccessful as the sutures came right off. I decision was made to place a Bakri balloon in the hopes of tamponade and the bleeding. Dr. Roman then positioned herself vaginally and was fed to the tail of the Bakri from the uterus through the vagina. The Bakri was carefully positioned into the fundus of the uterus. Once more evaluation of the hematoma did not find evidence of expansion and it was appreciated to be stable. I then reclosed the hysterotomy using a running locking stitch of 0 Vicryl, and the Bakri was inflated with 500 cc of sterile saline. Over the course of the instillation of the Bakri, the fundus was noted to be somewhat boggy; therefore, I injected 0.2 mg of Methergine into the fundus of the uterus. Once the pocket was fully instilled, crede of the uterus evacuated 50 cc of blood into the catch bag of the Bakri. Tissues were once more very carefully inspected, and there was no further evidence of any concerning bleeding; the hematoma was also appreciated to be stable in appearance. All instruments were removed, and I began to close the fascia. Of note, during counting, while I was closing the fascia, it was noted that we were missing 1 laparoscopic sponge. The suture of the fascia was once again cut out, and examination of the abdominal cavity appreciated the retained lap sponge which was removed. A recount was performed, and the counts were then correct. We then again began to proceed with closure of the fascia using 0 Vicryl. The subcutaneous tissues were reapproximated using 2-0 Monocryl, and the skin was reapproximated using 4-0 Monocryl. A clean dressing was applied to the hysterotomy. 1 more evaluation appreciated no further bleeding into the Bakri, and urine output was reassuring. Upon completion of the case in the operating room, we reviewed the blood products received by the patient. While in the OR, the patient received 2 units of packed red blood cells, 1 unit of FFP, and 1 unit of cryo. It was decided that she should be brought to the ICU given the extent of her original bleeding in conjunction with her preeclampsia and the amount of blood product received. Once the patient was brought to the ICU, I discussed the potential utility of escalation of the patient's care to a tertiary center given the tenuous state of fluid status in conjunction with preeclampsia as well as her potential need for future surgical intervention and potential need for further blood products. It was felt the patient would potentially benefit from the presence of maternal- medicine as well as gynecology oncology (in the event that she were to need a hysterectomy), interventional radiology, a fully resource to blood bank, and further expertise. The patient and her family were agreeable to this plan. A call was made to [facility] [place], and while I was speaking with the attending, it was noted that the patient's respiratory status was diminishing. 20 cc of IV Lasix was ordered and a request was placed with our hospitalist to assist in management of this patient's care. The hospitalist then also reached out to [facility] ICU and the attempts to have the patient transferred due to the complexity of her case, and the patient was ultimately accepted. Of note, blood loss calculations over the course of this patient's care are as follows: - 700 cc's for last night's surgery - 1195 cc's in time period between last night's surgery and today's surgery - 250 cc's in evacuated clot on vaginal exam - 350 cc's in suction'd contents - 50 cc's in Jarod contents - 250 cc's in lap sponges Date of Procedure: 05/02/25
[2025-05-02] MEDS: MORPHine 2 MG/ML SYR IVP ×2 (17:08→18:42)
--- NOTE | 2025-05-02 17:39 | W.PM.DS.N ---
Date of service: 05/02/25 Time of Service: 17:39 DS: Diagnosis Discharge Diagnosis (1) Pelvic hematoma in female: Status: Acute Asessment and Plan: Please see operative reports (2) Pre-eclampsia: Status: Acute (3) hemorrhage: Status: Acute Discharge Plan Disposition Patient Disposition: Transfer-Acute Inpatient Care Specific Acute Inpt Facility: [facility] Condition: Critical Discharge Details Reason For Visit: Preeclampsia Without Severe Features Admit Date/Time: 05/02/25 15:03 Admit Provider: Adrienne Trammell Attending Provider: Adrienne Trammell Primary Care Provider: Malaika Ashley Hospital Course Hospital Course: Tamiko Washington is a 25 year old woman, G1 now P1001 s/p 37 week primary low transverse section on May 01 at 23:41. Rh negative. Pre-eclampsia on admission. Pt had hemorrhage on hospital day 2 and is now s/p abdominal/pelvic exploration. She has required blood products. She is on 10L oxygen with fluctuating SpO2 concerning for embolus; CXR at [facility] shows no immediate evidence of occlusion. CTA deferred due to immediate transfer to [facility] at this time; Dr Santana accepting. At time of transfer she is awake and alert, conversant, appropriately emotional. Tachycardia persisting in the 120's. BPs 130's / 80's. SpO2 to 87% correcting into the 90's with conscious inspiration. Home Meds and New Rx's Prescriptions: Continued aspirin 81 mg tablet,delayed release (DR/EC) 162 mg PO DAILY Qty: 60 6RF Plus Vitamin-Mineral 27 mg iron- 1 mg tablet 1 tab PO DAILY Qty: 90 5RF Mag Glycinate 100 mg tablet 100 mg PO BID Qty: 60 5RF ondansetron 4 mg tablet,disintegrating 4 mg PO Q6H PRN (Reason: nausea and vomiting) Qty: 20 3RF paroxetine HCl 20 mg tablet 20 mg PO DAILY labetalol 100 mg tablet 300 mg PO BID Qty: 270 3RF Discharge Instructions Activity:: Activity as Tolerated Equipment/Supplies:: No Equipment Needed Diet:: As Tolerated Discharge Orders Discharge Orders: Discharge Order (Routine); Ordered 05/02/25 Ordered By: Ralf Soto DS: Summary Time Spent with Patient providing and/or coordinating discharge services: Greater than 30 minutes Status at Discharge Functional status at discharge: bed bound Overall status at discharge: patient is not back to baseline Mental Status: mental status grossly normal Speech and Movement: speech and movement normal Mood: congruent mood Affect: normal affect Exam Narrative Exam Narrative: General: This is a fatigued woman in distress due to pain and emotion HEENT: Normocephalic, atraumatic, no line in neck or chest CV: Tachycardia, regular rhythm, BLE 2+ pitting edema Resp: CTAB on 10L oxymask Abd: appropriately tender : uterine drain with bloody output, vergara with clear urine output MSK: voluntary motion x4, normal tone, BLE edema as above Neuro: awake, alert, no focal deficits A line, vergara, PIV x3, uterine drain Psych Mental Status: mental status grossly normal Speech and Movement: speech and movement normal Mood: congruent mood Affect: normal affect DS: Data Vitals/I&O Vitals and I&O: Vital Signs Temperature 37.3 C 05/02/25 17:15 Temperature Source Temporal Artery Scan 05/02/25 16:18 Temperature Source Oral 05/02/25 11:49 Pulse 97 H 05/02/25 17:20 Pulse Rhythm Regular 05/01/25 07:30 Pulse 97 H 05/02/25 17:20 Respiratory Rate 17 05/02/25 17:20 Respiratory Effort Normal 05/02/25 16:18 Respiratory Depth Normal 05/02/25 16:18 Respiratory Pattern Irregular 05/02/25 16:18 Blood Pressure 128/77 05/02/25 17:20 Blood Pressure Mean 112 05/02/25 17:09 Pulse Oximetry 90 L 05/02/25 17:20 Oxygen Delivery Method OxyMask 05/02/25 17:20 Oxygen Flow Rate 10 05/02/25 17:20 Pain Level 1 05/02/25 02:55 Comment 0559 and 0603 readings inaccurate, probe off 05/02/25 06:10 Arterial Systolic 134 05/02/25 17:20 Arterial Diastolic 80 05/02/25 17:20 Arterial Mean 102 05/02/25 17:20 Intake & Output 05/01/25 05/02/25 05/02/25 23:59 11:59 23:59 Intake Total 1846.683 / 2596.683 3125.000 / 4480.583 1355.583 / 4480.583 Output Total 2555 / 2855 975 / 1875 900 / 1875 Balance -708.317 / -658.739 0204.000 / 2605.583 455.583 / 2605.583 Weight 73.028 kg 73.028 kg Intake: IV 1126.683 / 6369.688 1680.000 / 4480.583 1355.583 / 4480.583 Oral 720 / 720 Output: Urine 1750 / 2050 535 / 535 Estimated Blood Loss 700 / 700 900 / 900 Blood 105 / 105 440 / 440 Other: Urine Color Yellow Urine Appearance Clear Comment minimal return noted. Data Completed and Pending Pending Labs at Discharge: 04/30/25 04/30/25 04/30/25 17:23 17:43 17:45 WBC Cancelled 9.51 RBC Cancelled 4.20 Hgb Cancelled 12.5 Hct Cancelled 37.2 MCV Cancelled 89 MCH Cancelled 29.8 MCHC Cancelled 33.6 RDW Cancelled 13.8 Plt Count Cancelled 203 MPV Cancelled 11.1 H Immature Gran % Cancelled 0.5 Neutrophils % Cancelled 74.1 Band Neutrophils % Cancelled Lymphocytes % Cancelled 15.9 Atypical Lymphs % Cancelled Monocytes % Cancelled 6.7 Eosinophils % Cancelled 2.3 Basophils % Cancelled 0.5 Metamyelocytes % Cancelled Myelocytes % Cancelled Promyelocytes % Cancelled Other Cells % Cancelled Nucleated RBC % Cancelled 0.0 Absolute Neutrophils Cancelled 7.04 H Absolute Lymphocytes Cancelled 1.51 Absolute Monocytes Cancelled 0.64 Absolute Eosinophils Cancelled 0.22 Absolute Basophils Cancelled 0.05 RBC Morphology Cancelled Polychromasia Cancelled Hypochromasia Cancelled Poikilocytosis Cancelled Basophilic Stippling Cancelled Anisocytosis Cancelled Microcytosis Cancelled Macrocytosis Cancelled Spherocytes Cancelled Tear Drop Cells Cancelled Ovalocytes Cancelled Stomatocytes Cancelled [place] Bodies Cancelled [place] Cells/Echinocytes Cancelled Acanthocytes (Spur) Cancelled Schistocytes Cancelled PT INR APTT Fibrinogen ABG Sample Site ABG pH ABG pCO2 ABG pO2 ABG HCO3 ABG Total CO2 ABG O2 Saturation ABG Base Excess Oxygen Liter Flow FiO2 Sodium 138 Potassium 4.1 Chloride 104 Carbon Dioxide 23.0 Anion Gap 11.0 BUN 8 Creatinine 0.6 Est GFR (CKD-EPI 2020) 127.67 Glucose 84 Calcium 9.1 Magnesium Ferritin Total Bilirubin 0.3 AST 19 ALT 21 Alkaline Phosphatase 163 H Total Protein 6.8 Albumin 2.9 L Urine Color Yellow Urine Clarity Clear Urine pH 7.0 Ur Specific [place] 1.020 Urine Protein 100 H Urine Ketones Negative Urine Blood Negative Urine Nitrite Negative Urine Bilirubin Negative Urine Urobilinogen 0.2 Ur Leukocyte Esterase Trace H Urine RBC 0-2 Urine WBC 3-5 Ur Epithelial Cells Few Urine Crystals Negative Urine Bacteria Moderate Urine Casts Urine Mucus Negative Ur Culture Indicated? No Ur Random Creatinine Urine Glucose Negative Add-On Test Request ABO/Rh A Negative Antibody Screen POSITIVE Antibody Identification Anti-D Screen Rhogam Unit Number [id number] Crossmatch See Detail Unit Expiration Date 09/21/25 Product Lot # [id number] 05/01/25 05/01/25 05/01/25 16:25 21:00 23:45 WBC 10.53 17.80 H RBC 4.01 3.11 L Hgb 12.1 9.4 L D Hct 35.1 L 27.9 L MCV 88 90 MCH 30.2 30.2 MCHC 34.5 33.7 RDW 13.9 13.9 Plt Count 189 173 MPV 11.0 10.9 Immature Gran % Neutrophils % Band Neutrophils % Lymphocytes % Atypical Lymphs % Monocytes % Eosinophils % Basophils % Metamyelocytes % Myelocytes % Promyelocytes % Other Cells % Nucleated RBC % Absolute Neutrophils Absolute Lymphocytes Absolute Monocytes Absolute Eosinophils Absolute Basophils RBC Morphology Polychromasia Hypochromasia Poikilocytosis Basophilic Stippling Anisocytosis Microcytosis Macrocytosis Spherocytes Tear Drop Cells Ovalocytes Stomatocytes [place] Bodies [place] Cells/Echinocytes Acanthocytes (Spur) Schistocytes PT 9.9 INR 1.0 APTT 24.2 Fibrinogen Pending ABG Sample Site ABG pH ABG pCO2 ABG pO2 ABG HCO3 ABG Total CO2 ABG O2 Saturation ABG Base Excess Oxygen Liter Flow FiO2 Sodium 139 Potassium 3.7 Chloride 106 Carbon Dioxide 22.2 Anion Gap 10.8 BUN 6 L Creatinine 0.6 Est GFR (CKD-EPI 2020) 127.67 Glucose 85 Calcium 8.6 Magnesium Cancelled 5.8 H* Ferritin 20 Total Bilirubin 0.4 AST 15 ALT 17 Alkaline Phosphatase 151 H Total Protein 6.3 L Albumin 2.6 L Urine Color Urine Clarity Urine pH Ur Specific [place] Urine Protein Urine Ketones Urine Blood Urine Nitrite Urine Bilirubin Urine Urobilinogen Ur Leukocyte Esterase Urine RBC Urine WBC Ur Epithelial Cells Urine Crystals Urine Bacteria Urine Casts Urine Mucus Ur Culture Indicated? Ur Random Creatinine Urine Glucose Add-On Test Request ABO/Rh Antibody Screen Antibody Identification Screen Rhogam Unit Number Crossmatch Unit Expiration Date Product Lot # 05/02/25 05/02/25 05/02/25 08:01 08:04 12:00 WBC 15.53 H RBC 2.61 L Hgb 8.1 L Hct 23.5 L MCV 90 MCH 31.0 MCHC 34.5 RDW 14.0 Plt Count 172 MPV 10.7 Immature Gran % Neutrophils % Band Neutrophils % Lymphocytes % Atypical Lymphs % Monocytes % Eosinophils % Basophils % Metamyelocytes % Myelocytes % Promyelocytes % Other Cells % Nucleated RBC % Absolute Neutrophils Absolute Lymphocytes Absolute Monocytes Absolute Eosinophils Absolute Basophils RBC Morphology Polychromasia Hypochromasia Poikilocytosis Basophilic Stippling Anisocytosis Microcytosis Macrocytosis Spherocytes Tear Drop Cells Ovalocytes Stomatocytes [place] Bodies [place] Cells/Echinocytes Acanthocytes (Spur) Schistocytes PT 9.7 INR 1.0 APTT 24.3 Fibrinogen Pending ABG Sample Site ABG pH ABG pCO2 ABG pO2 ABG HCO3 ABG Total CO2 ABG O2 Saturation ABG Base Excess Oxygen Liter Flow FiO2 Sodium 135 L Potassium 4.6 Chloride 104 Carbon Dioxide 21.3 Anion Gap 9.7 BUN 8 Creatinine 0.8 Est GFR (CKD-EPI 2020) 104.80 Glucose 102 Calcium 7.5 L Magnesium 4.9 H* Ferritin Total Bilirubin 0.3 AST 36 ALT 19 Alkaline Phosphatase 114 Total Protein 5.0 L Albumin 2.1 L Urine Color Yellow Urine Clarity Clear Urine pH 5.5 Ur Specific [place] >= 1.030 H Urine Protein Trace Urine Ketones 15 H Urine Blood Large H Urine Nitrite Negative Urine Bilirubin Negative Urine Urobilinogen 0.2 Ur Leukocyte Esterase Negative Urine RBC 20-50 H Urine WBC 0-2 Ur Epithelial Cells Few Urine Crystals Negative Urine Bacteria Few Urine Casts 3-5 Hyaline Urine Mucus Moderate Ur Culture Indicated? No Ur Random Creatinine 188.64 Urine Glucose Negative Add-On Test Request DONE ABO/Rh Antibody Screen Antibody Identification Screen Pending Rhogam Unit Number Crossmatch Unit Expiration Date Product Lot # 05/02/25 05/02/25 05/02/25 12:45 15:20 15:35 WBC 11.96 H 17.05 H RBC 2.05 L 2.98 L Hgb 6.3 L* 9.0 L D Hct 18.4 L* 26.7 L MCV 90 90 MCH 30.7 30.2 MCHC 34.2 33.7 RDW 14.1 14.4 Plt Count 142 165 MPV 10.9 10.8 Immature Gran % 0.5 Neutrophils % 84.8 Band Neutrophils % Lymphocytes % 7.9 Atypical Lymphs % Monocytes % 6.3 Eosinophils % 0.2 Basophils % 0.3 Metamyelocytes % Myelocytes % Promyelocytes % Other Cells % Nucleated RBC % 0.0 Absolute Neutrophils 14.46 H Absolute Lymphocytes 1.35 Absolute Monocytes 1.07 H Absolute Eosinophils 0.03 Absolute Basophils 0.05 RBC Morphology Polychromasia Hypochromasia Poikilocytosis Basophilic Stippling Anisocytosis Microcytosis Macrocytosis Spherocytes Tear Drop Cells Ovalocytes Stomatocytes [place] Bodies [place] Cells/Echinocytes Acanthocytes (Spur) Schistocytes PT 9.3 INR 0.9 APTT 22.7 Fibrinogen ABG Sample Site Arterial Line ABG pH 7.35 ABG pCO2 38 ABG pO2 67 L ABG HCO3 21 L ABG Total CO2 20 L ABG O2 Saturation 93 L ABG Base Excess -5 L Oxygen Liter Flow 5 FiO2 Unknown/Not Given Sodium Potassium Chloride Carbon Dioxide Anion Gap BUN Creatinine Est GFR (CKD-EPI 2020) Glucose Calcium Magnesium Ferritin Total Bilirubin AST ALT Alkaline Phosphatase Total Protein Albumin Urine Color Urine Clarity Urine pH Ur Specific [place] Urine Protein Urine Ketones Urine Blood Urine Nitrite Urine Bilirubin Urine Urobilinogen Ur Leukocyte Esterase Urine RBC Urine WBC Ur Epithelial Cells Urine Crystals Urine Bacteria Urine Casts Urine Mucus Ur Culture Indicated? Ur Random Creatinine Urine Glucose Add-On Test Request ABO/Rh Antibody Screen Antibody Identification Screen Rhogam Unit Number Crossmatch Unit Expiration Date Product Lot # Preliminary micro results at discharge 04/30/25 17:55 Vaginal/Rectal Group B Streptococcus Culture - Pending [facility] All Active Problems (Updated 05/02/25 @ 15:55 by Adrienne Trammell, ) Pre-eclampsia (Acute) Pelvic hematoma in female (Acute) Acute blood loss anemia (Acute) Post-operative complication (Acute) Pelvic hematoma, (Acute) hemorrhage (Acute) Hypotension after procedure (Acute) Pre-eclampsia affecting childbirth (Acute) Chronic hypertension during (Acute) Placenta previa antepartum in second trimester (Acute) Stage 1 hypertension (Acute) Medication exposure during first trimester of (Acute) Rh negative status during (Acute) (Acute) Depression with anxiety (Acute) Medical History 28 weeks gestation of Contraception (04/17/16) Missed menses History of alcohol use Surgical History [place] teeth removed Family History Grandfather Skin cancer Stroke paternal Grandmother Breast cancer Heart disease Grandmother Breast cancer maternal Grandfather Non Hodgkin's lymphoma maternal Father Alcohol use disorder Social History Smoking/Tobacco Use Status: Former Tobacco Use Smoking risk assessment performed?: Yes Alcohol Intake: former Year quit: 2023 Drug use: Never Housing: house Number of Children: 0 Education Level: college Sexually active: Yes Do you think of yourself as: straight/heterosexual Current gender identity: female What is your relationship status?: Panel score (0-1 are the most socially isolated patients): 1 What type of physical activity do you participate in: none Berkley/Jewish: None Do you feel safe at home: Yes Do you feel safe in your relationship?: Yes Female Reproductive History Menstrual Age of Menarche: 12 Duration of menses: 6-7 days control method: pills and condoms History History 2 Para 0 Hx # Term Pregnancies 0 Multiple births 0 Hx # Pregnancies 0 Ectopic pregnancies 0 AB induced 0 Hx Number of Living Children 0 AB spontaneous 1 Past Pregnancies Del. Date GA/Weeks # Preg Succ Route Wgt Sex Labor Lgth Anesthesia Location [facility] 08/09/24 2 No Time Spent with Patient Time Spent with Patient: 45-69 minutes Time was spent: preparing to see the patient(eg.review tests), obtaining and/or reviewing separately otained hiistory, ordering medications,tests, procedures, referring, communicating with other health hiv/aids care nurse, indepentently interpreting results, counseling the patient and care coordination
--- NOTE | 2025-05-02 18:16 | DI.VRAD_ITS ---
PROCEDURE INFORMATION: Exam: XR Chest Exam date and time: 05/02/2025 5:28 PM Age: 25 years old Clinical indication: Other: Hypoxemia TECHNIQUE: Imaging protocol: Radiologic exam of the chest. Views: 1 view. COMPARISON: CT ABDOMEN PELVIS WO/W 05/02/2025 8:50 AM FINDINGS: Lungs: Unremarkable. No consolidation. Pleural spaces: Unremarkable. No pleural effusion. No pneumothorax. Heart/Mediastinum: Unremarkable. No cardiomegaly. Bones/joints: Unremarkable. IMPRESSION: No evidence for acute abnormality in the chest. Dictated and Authenticated by: Alexandra Harrison MD. Orderin Charles Arambula MD
--- NOTE | 2025-05-02 20:07 | ANES.POST_ITS ---
Postoperative Evaluation Date, Time and Location Date Performed: 05/02/25 Time Performed: 16:30 Patient Location: Intensive Care Unit Vital Signs Most Recent Imported Vital Signs: Most Recent Vital Signs Temp Pulse Resp BP Pulse Ox 37.5 C 119 H 26 H 128/80 95 05/02/25 17:15 05/02/25 18:30 05/02/25 18:30 05/02/25 18:01 05/02/25 18:30 Pain Score Most Recent Pain Score: Most Recent Pain Score Pain Level 1 05/02/25 02:55 Assessment Mental Status: Awake (Alert & Oriented to Patient Baseline) Airway and Respiratory Function: Abnormal Respiratory exam (See explanation) (O2 needs increasing, plan discussed with OB team--CXR, supplemental O2, Lasix IV for diuresis, discussed fluid balance in setting of PPH and Preeclampsia) Cardiovascular Function: Hemodynamically Stable (Blood pressures climbing and discussed with OB team) Hydration Status: Volume Overload (See Note) (Obtaining labs, resuscitation parameters from PPH/surgical loss) Nausea & Vomiting: No Nausea or Vomiting Pain: Pain is tolerable per patient Peripheral Nerve Block: Patient did not receive a nerve block Postoperative Comments:: Patient being monitored in ICU setting. at bedside. Both patient and updated by surgical team and anesthesia at bedside, lungs noted to have rhonchi post extubation, supplemental oxygen administered and care per RN/anesthesia chart documentation. Discussion regarding potentail transfer to tertiary care with patient and and reaching out [place] [facility]
[2025-05-03 16:50] LABS: Fibrinogen 230 mg/dL (171-384)
== END 2025-05-02 18:30 | disposition short-term general hospital (02) | DRG 787 ==
LOC: OBS 05-01 07:25 → ICU 05-02 17:24 → OBS 05-07 11:22
PROVIDERS: Student in an Organized Health Care Education/Training Program; Surgery; Admitting Provider Obstetrics & Gynecology; PCP Nurse Practitioner Family; Visit Provider Obstetrics & Gynecology
PROC: 3E0P7VZ Introduction of Hormone into Female Reproductive, Via Natural or Artificial Opening (ICD-10-PCS; CPT 59514; principal; 2025-05-01 21:00)
PROC: 0UT90ZZ Resection of Uterus, Open Approach (ICD-10-PCS; CPT 59100; principal; 2025-05-02 12:30)
DX: O11.4 Pre-existing hypertension with pre-eclampsia, complicating childbirth (principal); D62 Acute posthemorrhagic anemia; O88.23 Thromboembolism in the puerperium; O10.92 Unspecified pre-existing hypertension complicating childbirth; Z37.0 Single live birth; O99.344 Other mental disorders complicating childbirth; F41.8 Other specified anxiety disorders; O99.62 Diseases of the digestive system complicating childbirth; O26.893 Other specified pregnancy related conditions, third trimester; Z67.91 Unspecified blood type, Rh negative; K59.00 Constipation, unspecified; O90.81 Anemia of the puerperium; O71.7 Obstetric hematoma of pelvis; Z3A.37 37 weeks gestation of pregnancy
CPT/HCPCS: 59514; 35840; 59100; 00123; 36415; 76942; 80053; 82805; 85027; 85384; 85461; 86850; 86900; 86901; 86920; 86945; 90384; 59200; 71045; 74178; 81003; 81015; 82565; 82728; 83735; 85025; 85610; 85730; 86870; 87081; 88307; J0360; J0456; J0665; J0690; J1100; J1885; J1938; J2003; J2250; J2270; J2274; J2371; J2405; J2704; J2790; J3010; J3475; J3490; P9012; P9016; P9035; P9059

== ENCOUNTER 2025-05-07 18:05 | Observation (INO) | payer OTHER, SELFPAY ==
[2025-05-07] VITALS (10 sets, daily range): BP systolic 139–183; BP diastolic 90–130; PULSE 79–111; RESP 18; TEMP 37.1–37.3; O2SAT 97
[2025-05-07 15:08] LABS: Abs Immature Grans 0.14 10^3/uL (0.0-0.06); HCT 25.1 % (36.0-46.0); HGB 8.5 g/dL (11.2-15.7); Immature Grans % 1.6 %; MCH 29.9 pg (27.0-33.0); MCHC 33.9 % (32.0-36.0); MCV 88 fL (80-95); MPV 9.0 fL (8.0-11.0); Platelet Count 353 10^3/uL (130-400); RBC 2.84 10^6/uL (3.93-5.22); RDW 14.3 % (11.7-14.6); RDW-SD 45.6 fL; WBC 8.60 10^3/uL (4.4-10.8)
[2025-05-07] MEDS: NIFEdipine 10 MG CAP PO (15:19)
[2025-05-07 15:28] LABS: HCG Quant, Pregnancy 470 mIU/mL (1.5-4.2)
[2025-05-07 15:32] LABS: ALT 26 U/L (10-49); AST 35 U/L (<34); Albumin 4.1 g/dL (3.4-5.0); Alkaline Phosphatase 96 U/L (46-116); Anion Gap 12 mmol/L (3-11); BUN 8 mg/dL (9-23); Bilirubin, Total 0.30 mg/dL (0.2-1.2); CO2 23.0 mmol/L (20.0-31.0); Calcium 9.5 mg/dL (8.3-10.6); Chloride 108 mmol/L (98-107); Glucose 89 mg/dL (74-106); Potassium 3.7 mmol/L (3.5-5.1); Sodium 143 mmol/L (136-145); Total Protein 6.4 g/dL (5.7-8.2)
[2025-05-07 16:47] LABS: Prot/Crea Ur Ratio 1.14 mg/mg Cr
--- NOTE | 2025-05-07 18:03 | HPE_ITS ---
Date of service: 05/07/25 Time of Service: 18:08 Assessment and Plan Assessment and plan (1) Pre-eclampsia affecting childbirth: Status: Acute (2) Stage 1 hypertension: Status: Acute Assessment and plan: Pt is a 25yo POD#6 s/p PCS for preeclampsia with severe features complicated by PPH and a pelvic hematoma with re-exploration and transfer to [facility] for ongoing management in case of need for a hysterectomy or further blood products. She was seen for a BP check in the office which was found to be elevated so she was sent to the center. On arrival her BP, as well as a repeat, were in the severe range and therefore she received 10mg of Nifedipine PO. An IV was started and labs were ordered which showed normal Cr, LFTs, Plts. She is anemic but c/w prior results. Her BPs have not returned to severe range in 2+hrs since receiving the Nifedipine. She denies sxms of PEC. She does have hyper-reflexia though this is apparently c/w what she had during labor and . She has been on 300mg Labetalol PO at home. At this point we plan to observe her closely overnight. If she develops severe range BPs again or any other s/s of PEC, then we would plan to start magnesium sulfate for seizure ppx. Otherwise we will observe her BPs, start her on Nifedipine XR and re-evaluate in the am. OB-HPI Labor/Delivery History of Present Illness Reason for Visit: HTN Chief Complaint: Signs/Symptoms Gestational HTN , Associated Signs and Symptoms of GestationalHTN: HTN. History of Present Narrative: Leanne was seen in the office for a BP check POD#6 s/p PCS and was noted to have an elevated BP. She had PEC with severe features and a CS that was complicated by a pelvic hematoma and PPH with concern for a potential need for hysterectomy. There fore she was transferred to [facility] on POD#1 s/p exploratory laparotomy. She was observed there and remained stable and was discharged on POD#4. Per her and her , her BPs were only mildly elevated while there. She says she is tired but feels ok overall. No headache or visual changes. minimal lochia. Pain has been managed primarily on tylenol and 1 oxycodone yesterday. She is formula feeding and said she experienced some engorgement last night but it is already improving and not bothering her much. Review of Systems Constitutional Constitutional: Denies headache(s) Eyes Eyes: Denies change in vision ENT Ears, Nose, Mouth, and Throat: Denies headache(s) Gastrointestinal Gastrointestinal: Denies nausea and Denies vomiting Comments: Normal BMs Genitourinary Genitourinary: Reports system reviewed and no additional complaints, except as documented Comments: minimal lochia. Neurologic Neurologic: Denies headache(s) PFSH All Active Problems (Updated 05/07/25 @ 18:24 by iLss Roman MD) Stage 1 hypertension (Acute) Acute blood loss anemia (Acute) Pelvic hematoma, (Acute) hemorrhage (Acute) Pre-eclampsia affecting childbirth (Acute) Depression with anxiety (Acute) Medical History (Updated 05/07/25 @ 18:24 by Liss Roman MD) History of alcohol use Surgical History [place] teeth removed Family History Grandfather Skin cancer Stroke paternal Grandmother Breast cancer Heart disease Grandmother Breast cancer maternal Grandfather Non Hodgkin's lymphoma maternal Father Alcohol use disorder Social History Smoking/Tobacco Use Status: Former Tobacco Use Smoking risk assessment performed?: Yes Alcohol Intake: former Year quit: 2023 Drug use: Never Housing: house Number of Children: 0 Education Level: college Sexually active: Yes Do you think of yourself as: straight/heterosexual Current gender identity: female What is your relationship status?: Panel score (0-1 are the most socially isolated patients): 1 What type of physical activity do you participate in: none Berkley/Baptism: None Do you feel safe at home: Yes Do you feel safe in your relationship?: Yes Female Reproductive History Menstrual Age of Menarche: 12 Duration of menses: 6-7 days control method: pills and condoms History History 2 Para 1 Hx # Term Pregnancies 0 Multiple births 0 Hx # Pregnancies 1 Ectopic pregnancies 0 AB induced 0 Hx Number of Living Children 1 AB spontaneous 1 Past Pregnancies Del. Date GA/Weeks # Preg Succ Route Wgt Sex Labor Lgth Anesth esia Location Prov [facility] 08/09/24 2 No 05/02/25 36 Yes Female Yo ald Delivery Date: 05/02/25 Last Updated by: Maria Guadalupe Corrales RN Preeclampsia. PP Hemorrhage Meds Allergies and Home Medications Allergies Allergy/AdvReac Type Severity Reaction Status Date / Time No Known Drug Allergies Allergy Other (See Verified 05/07/25 13:31 Comment) Home Medications Medication Instructions Recorded Confirmed Type paroxetine HCl 20 mg tablet 20 mg PO DAILY 09/07/24 History aspirin 81 mg tablet,delayed 162 mg (2 x 81 mg) PO GRACIA LY #60 12/16/24 04/26/25 Rx release tabs vitamins no.180-ferrous 1 tab PO DAILY #90 ta bs 12/16/24 04/29/25 Rx fumarate 27 mg-folic acid 1 mg tablet ( Plus Vitamin-Mineral) magnesium glycinate 100 mg (as 100 mg PO BID #60 tabs 02/10/25 04/15/25 Rx glycinate) tablet (Mag Glycinate) ondansetron 4 mg disintegrating 4 mg PO Q6H PRN nausea and 02/10/25 04/15/25 Rx tablet vomiting #20 tabs labetalol 100 mg tablet 300 mg (3 x 100 mg) PO BID # 270 04/20/25 05/07/25 Rx tabs Exam Physical Exam Vital signs: Pulse BP Pulse Ox 102 H 154/106 H 97 05/07/25 17:16 05/07/25 17:16 05/07/25 15:05 Vital Signs Reviewed: Yes Detailed Labor and Delivery Exam Gomez Score: Cervical Points Exam 0 1 2 3 Dilation Closed 1-2cm 3-4 cm 5-6cm Effacement 0-30% 40-50% 60-70% 80% Consistency Firm Medium Soft Station -3 -2 -1,0 +1,+2 Position Posterior Mid Anterior HEENT Exam HEENT Exam: Normal Detailed Abdominal Exam Comments: No upper abdominal tenderness. Minimal tenderness around the incision, which was well healed. Fundus down 1 from U and slightly displaced to pt's left (which was also noted at time of ex lap). Detailed Extremities Exam Comments: 4+ DTRs b/l (per nurse, this was the same during labor/ Results Abnormal Lab Findings: Abnormal Labs 05/07/25 05/07/25 14:55 15:20 RBC 2.84 L Hgb 8.5 L Hct 25.1 L Chloride 108 H Anion Gap 12 H BUN 8 L Creatinine 0.5 L HCG, Quant 470 H U Random Total Protein 14.4 H Risk Assessment Risk for Pre-Eclampsia Date Initiated/Initials: EO Yes, if 2 or more: POSITIVE FOR: Nulliparity Risks Reviewed Risks Reviewed Upon Admission: Yes
[2025-05-07] MEDS: NIFEdipine-CR 30 MG TABCR PO (18:59)
[2025-05-07] MEDS: Labetalol 100 MG TAB 300 MG PO (20:03)
[2025-05-08] VITALS (7 sets, daily range): BP systolic 115–140; BP diastolic 74–96; PULSE 97–114; RESP 16–18; TEMP 36.7–37.3; O2SAT 98
[2025-05-08] MEDS: Acetaminophen 325 MG TAB 650 MG PO (07:50)
[2025-05-08] MEDS: PARoxetine 20 MG TAB PO (07:56)
[2025-05-08] MEDS: Labetalol 100 MG TAB 300 MG PO (08:32)
--- NOTE | 2025-05-08 10:21 | OBPPV_ITS ---
Date of service: 05/08/25 Time of Service: 10:21 Assessment and Plan Assessment and plan (1) Pre-eclampsia affecting childbirth: Status: Acute (2) Stage 1 hypertension: Status: Acute Assessment and plan: Pt is a 25yo POD#6 s/p PCS for preeclampsia with severe features complicated by PPH and a pelvic hematoma with re-exploration and transfer to [facility] [place] management in case of need for a hysterectomy or further blood products. Admitted for BP observation with 1 initial high range BP that responded well to PO nifedipine. She was observed overnight with improved BPs after the addition of Nifedipine. She will be discharged to home with continued Nifedipine 30mg XR as well as the labetalol. She will plan to check her BP 2-3x/day or if she is not feeling well. We reviewed how to check her BP accurately. We also reviewed signs/sxms of PEC and reasons to call. She will call the office saturday am to come in for a BP check. Subjective Subjective Narrative: Pt says she feels well this am. She was able to rest overnight. She denies headache or visual changes. Her pain is well controlled. She didn't even take tylenol until this am. Minimal lochia. No GI concerns. Good urine output. Exam Physical Exam Vital signs: Temp Pulse Resp BP Pulse Ox 98.2 F 103 H 16 115/74 98 05/08/25 09:30 05/08/25 09:30 05/08/25 09:30 05/08/25 09:30 05/08/25 07:30 Vital Signs Reviewed: Yes Narrative: Constitutional Constitutional: no acute distress and cooperative Detailed HEENT Exam Head: Present normocephalic and atraumatic Respiratory Exam Respiratory Exam: Normal Abdominal Exam Abdomen: Tender (mildly) Comments: Incision clean and intact Fundal Exam Fundus: Below Umbilicus and Firm Extremities Exam Extremity Exam: Edema (trace) Detailed Neurological Exam Neurological: Present alert, oriented X3 and CN II-XII intact Results Hemoglobin/Hematocrit: Hgb 8.5 g/dL (11.2-15.7) L 05/07/25 14:55 Hct 25.1 % (36.0-46.0) L 05/07/25 14:55 Abnormal Lab Findings: Abnormal Labs 05/07/25 05/07/25 14:55 15:20 RBC 2.84 L Hgb 8.5 L Hct 25.1 L Chloride 108 H Anion Gap 12 H BUN 8 L Creatinine 0.5 L HCG, Quant 470 H U Random Total Protein 14.4 H
== END 2025-05-08 11:00 ==
LOC: BCD 18:09 → OBS 18:09
PROVIDERS: Obstetrics & Gynecology; Admitting Provider Obstetrics & Gynecology; PCP Nurse Practitioner Family; Visit Provider Obstetrics & Gynecology
DX: O11.5 Pre-existing hypertension with pre-eclampsia, complicating the puerperium (principal); O10.93 Unspecified pre-existing hypertension complicating the puerperium; O90.81 Anemia of the puerperium; D62 Acute posthemorrhagic anemia; O99.345 Other mental disorders complicating the puerperium; F41.8 Other specified anxiety disorders
CPT/HCPCS: 36415; 80053; 82565; 84156; 84702; 85025; G0378

== ENCOUNTER 2025-06-09 16:16 | Outpatient (CLI) | payer OTHER, SELFPAY ==
[2025-06-09 16:33] LABS: Abs Immature Grans 0.03 10^3/uL (0.0-0.06); HCT 34.7 % (36.0-46.0); HGB 11.3 g/dL (11.2-15.7); Immature Grans % 0.3 %; MCH 26.0 pg (27.0-33.0); MCHC 32.6 % (32.0-36.0); MCV 80 fL (80-95); MPV 9.3 fL (8.0-11.0); Platelet Count 464 10^3/uL (130-400); RBC 4.34 10^6/uL (3.93-5.22); RDW 13.4 % (11.7-14.6); RDW-SD 39.5 fL; WBC 8.88 10^3/uL (4.4-10.8)
[2025-06-09 17:04] LABS: HCG Quant, Pregnancy < 3 mIU/mL (1.5-4.2)
== END 2025-06-09 16:17 | disposition home or self-care (01) ==
LOC: LBO 16:16
PROVIDERS: PCP Nurse Practitioner Family; Visit Provider Obstetrics & Gynecology
DX: O72.1 Other immediate postpartum hemorrhage (principal); O71.7 Obstetric hematoma of pelvis; D62 Acute posthemorrhagic anemia
CPT/HCPCS: 36415; 84702; 85025